=== PATIENT | female | born 1960 | race Caucasian/White ===

== ENCOUNTER 2019-02-20 11:48 | Emergency (ER) | payer OTHER ==
--- OUTSIDE RECORDS SUMMARY | 2019-02-20 11:50 | XMS REPORT ---
:1960 Author Organization [employer] Care Team Providers Name Role Phone Aly, Na Provider Role Unavailable Allergies, Adverse Reactions, Alerts Substance Reaction Event Type codeine itching Drug Allergy Problems Problem Type Condition Code Onset Dates Condition Status Assessment Hyperlipemia E78.5 Active Assessment Chronic fatigue R53.82 Active Assessment Obstructive sleep apnea of adult G47.33 Active Assessment HTN (hypertension) I10 Active Assessment Primary insomnia F51.01 Active Assessment Chronic obstructive pulmonary J44.9 Active disease, unspecified COPD type Problem Anxiety disorder, unspecified F41.9 Active Problem Claustrophobia F40.240 Active Problem Mass of right side of neck R22.1 Active Problem Snores R06.83 Active Problem Encounter for tobacco use Z71.6 Active cessation counseling Problem Contusion, knee S80.00XA Active Problem Obstructive sleep apnea of adult G47.33 Active Problem Colitis K52.9 Active Problem Medication side effect T88.7XXA Active Problem Bilateral lower extremity edema R60.0 Active Problem Primary insomnia F51.01 Active Problem Fatigue R53.83 Active Problem Hyperlipemia E78.5 Active Problem Muscle cramps R25.2 Active Problem Drowsiness R40.0 Active Problem Chronic fatigue R53.82 Active Problem Obstructive sleep apnea G47.33 Active Problem Encounter for screening for other Z11.59 Active viral diseases Problem Other specified personal risk Z91.89 Active factors, not elsewhere classified Assessment Muscle cramps R25.2 Active Problem Allergic rhinitis J30.9 Active Assessment Bilateral lower extremity edema R60.0 Active Problem Vitamin D insufficiency E55.9 Active Assessment Encounter for screening for other Z11.59 Active viral diseases Problem HTN (hypertension) I10 Active Assessment Colitis K52.9 Active Problem Sleep apnea G47.30 Active Assessment Mass of right side of neck R22.1 Active Problem Cigarette nicotine dependence F17.210 Active without complication Assessment Other specified personal risk Z91.89 Active factors, not elsewhere classified Problem Dyspnea, unspecified type R06.00 Active Problem BMI 40.0-44.9, adult Z68.41 Active Problem Chronic obstructive pulmonary J44.9 Active disease, unspecified COPD type Medications Medication Code Code Instructions Start End Status Dosage System Date Date Losartan [facility] 83634580152 50-12.5 MG Active 1 tablet Potassium-HCTZ Orally Once a day Ambien [facility] 34681885186 5 MG Orally Once Active 1 tablet a day at bedtime Singulair [facility] 54926246401 10 MG Orally Active 1 tablet Once a day in the evening Lodine [facility] 75743233483 400 MG Orally Active 1 tablet Twice a day with food ProAir [facility] 69488187405 108 (90 Base) Active 2 puffs as RespiClick MCG/ACT needed Inhalation every 6 hrs Ativan [facility] 83329691978 0.5 MG Orally January 15, Active 1 tablet every 12 hrs 2017 as needed Diclofenac [facility] 24004117813 75 MG Orally Active 1 tablet Sodium Twice a day with food or milk Omeprazole [facility] 55035404059 20 MG Orally Active 1 capsule Once a day Lipitor [facility] 37403971894 40 MG Orally Active 1 tablet Once a day Flonase [facility] 59705483013 50 MCG/ACT Active 1 spray in Nasally Once a each day nostril Claritin [facility] 00836188895 10 MG Orally Active 1 tablet Once a day Macrobid [facility] 52696953601 100 MG Orally Active 1 capsule every 12 hrs with food Ambien [facility] 70492292004 5 MG Orally Once Jul 01, Active 1 tablet a day 2018 at bedtime Magnesium ND 47270645024 400 MG Orally Oct 29, Active 1 tablet Oxide Once a day 2019 Bevespi [facility] 33887990955 9-4.8 MCG/ACT Active 2 puffs Aerosphere Inhalation Twice a day Results No Known Results Summary Purpose eClinicalWorks Submission
--- OUTSIDE RECORDS SUMMARY | 2019-02-20 11:50 | XMS REPORT ---
:1960 Author Organization [employer] Care Team Providers Name Role Phone Aly, Na Provider Role Unavailable Allergies, Adverse Reactions, Alerts Substance Reaction Event Type codeine itching Drug Allergy Problems Problem Type Condition Code Onset Dates Condition Status Assessment Mass of right side of neck R22.1 Active Assessment Medication side effect T88.7XXA Active Assessment Encounter for tobacco use Z71.6 Active cessation counseling Assessment Colitis K52.9 Active Assessment Hyperlipemia E78.5 Active Problem Contusion, knee S80.00XA Active Assessment HTN (hypertension) I10 Active Problem Vitamin D insufficiency E55.9 Active Assessment Obstructive sleep apnea of adult G47.33 Active Problem BMI 40.0-44.9, adult Z68.41 Active Problem Cigarette nicotine dependence F17.210 Active without complication Problem Chronic obstructive pulmonary J44.9 Active disease, unspecified COPD type Problem Colitis K52.9 Active Problem Medication side effect T88.7XXA Active Problem Hyperlipemia E78.5 Active Problem Obstructive sleep apnea G47.33 Active Assessment Chronic obstructive pulmonary J44.9 Active disease, unspecified COPD type Problem Mass of right side of neck R22.1 Active Problem Dyspnea, unspecified type R06.00 Active Problem Obstructive sleep apnea of adult G47.33 Active Problem Encounter for tobacco use Z71.6 Active cessation counseling Problem Sleep apnea G47.30 Active Problem Allergic rhinitis J30.9 Active Problem Fatigue R53.83 Active Problem HTN (hypertension) I10 Active Problem Claustrophobia F40.240 Active Problem Snores R06.83 Active Problem Drowsiness R40.0 Active Problem Anxiety disorder, unspecified F41.9 Active Medications Medication Code System Code Instructions Start Date End Date Status Dosage Losartan NDC 0 Active not defined Potassium-HCTZ Results No Known Results Summary Purpose eClinicalWorks Submission
--- OUTSIDE RECORDS SUMMARY | 2019-02-20 11:50 | XMS REPORT ---
:1960 Author Organization [employer] Care Team Providers Name Role Phone Aly, Na Provider Role Unavailable Allergies, Adverse Reactions, Alerts Substance Reaction Event Type codeine itching Drug Allergy Problems Problem Type Condition Code Onset Dates Condition Status Problem Anxiety disorder, unspecified F41.9 Active Problem Snores R06.83 Active Problem Claustrophobia F40.240 Active Problem Chronic obstructive pulmonary J44.9 Active disease, unspecified COPD type Assessment Snores R06.83 Active Problem Dyspnea, unspecified type R06.00 Active Assessment Cigarette nicotine dependence F17.210 Active without complication Problem Obstructive sleep apnea G47.33 Active Problem BMI 40.0-44.9, adult Z68.41 Active Problem Contusion, knee S80.00XA Active Problem Cigarette nicotine dependence F17.210 Active without complication Problem Vitamin D insufficiency E55.9 Active Assessment Dyspnea, unspecified type R06.00 Active Assessment Chronic obstructive pulmonary J44.9 Active disease, unspecified COPD type Assessment Hyperlipemia E78.5 Active Assessment HTN (hypertension) I10 Active Problem HTN (hypertension) I10 Active Problem Sleep apnea G47.30 Active Problem Hyperlipemia E78.5 Active Problem Allergic rhinitis J30.9 Active Problem Fatigue R53.83 Active Problem Drowsiness R40.0 Active Medications Medication Code Code Instructions Start End Status Dosage System Date Date ProAir RespiClick [facility] 63458700503 108 (90 Base) Active 2 puffs MCG/ACT as needed Inhalation every 6 hrs Omeprazole ND 48228575938 20 MG Orally Active 1 capsule Once a day Lodine [facility] 61785778165 400 MG Orally Active 1 tablet Twice a day with food Chantix Starting Month ND 33494785730 .5mg as January Active one for 3 Eladio directed , 27, days then 2017 2017 bid for 4 days then 1mg BID for 21 days Claritin ND 39700929910 10 MG Orally Active 1 tablet Once a day Magnesium Oxide ND 04792375827 400 MG Orally Active 1 tablet Once a day as needed Hydrochlorothiazide [facility] 62726024786 25 MG Orally Active 1 tablet Once a day in the morning Flonase [facility] 59148693414 50 MCG/ACT Active 1 spray Nasally Once a in each day nostril Lisinopril [facility] 52817504313 5 MG Orally Active 1 tablet Once a day Bevespi Aerosphere [facility] 16490195378 9-4.8 MCG/ACT Active 2 puffs Inhalation Twice a day Singulair [facility] 27531363554 10 MG Orally Active 1 tablet Once a day in the evening Ativan [facility] 39685051891 0.5 MG Orally March Active 1 tablet every 12 hrs , as needed 2017 Ambien [facility] 77371291358 5 MG Orally Active 1 tablet Once a day at bedtime Macrobid [facility] 90472702178 100 MG Orally Active 1 capsule every 12 hrs with food Diclofenac Sodium [facility] 14860883135 75 MG Orally Active 1 tablet Twice a day with food or milk Lipitor [facility] 82242250062 40 MG Orally Active 1 tablet Once a day Results No Known Results Summary Purpose eClinicalWorks Submission
--- OUTSIDE RECORDS SUMMARY | 2019-02-20 11:50 | XMS REPORT ---
:1960 Author Organization [employer]Works Care Team Providers Name Role Phone Aly, Na Provider Role Unavailable Allergies No Known Allergies Problems Problem Type Condition Code Onset Dates Condition Status Problem Anxiety disorder, unspecified F41.9 Active Problem Snores R06.83 Active Problem Claustrophobia F40.240 Active Problem Chronic obstructive pulmonary J44.9 Active disease, unspecified COPD type Problem Dyspnea, unspecified type R06.00 Active Problem Obstructive sleep apnea G47.33 Active Problem BMI 40.0-44.9, adult Z68.41 Active Problem Contusion, knee S80.00XA Active Problem Cigarette nicotine dependence F17.210 Active without complication Problem Vitamin D insufficiency E55.9 Active Problem HTN (hypertension) I10 Active Problem Sleep apnea G47.30 Active Problem Hyperlipemia E78.5 Active Problem Allergic rhinitis J30.9 Active Problem Fatigue R53.83 Active Problem Drowsiness R40.0 Active Medications No Known Medications Results No Known Results Summary Purpose eClinicalWorks Submission
--- OUTSIDE RECORDS SUMMARY | 2019-02-20 11:50 | XMS REPORT ---
:1960 Author Organization [employer]Works Care Team Providers Name Role Phone Aly, Nancy Provider Role Unavailable Allergies No Known Allergies [...] insufficiency E55.9 Active Assessment Obstructive sleep apnea G47.33 Active Problem HTN (hypertension) I10 Active Problem Sleep apnea G47.30 Active Problem Hyperlipemia E78.5 Active Problem Allergic rhinitis J30.9 Active Problem Fatigue R53.83 Active Problem Drowsiness R40.0 Active Medications No Known Medications Results No Known Results Summary Purpose eClinicalWorks Submission
--- OUTSIDE RECORDS SUMMARY | 2019-02-20 11:50 | XMS REPORT ---
:1960 Author Organization [employer]ClinicalWorks Care Team Providers Name Role Phone Aly, Nancy Provider Role Unavailable Allergies No Known Allergies Problems Problem Type Condition Code Onset Dates Condition Status Problem Hyperlipemia E78.5 Active Problem HTN (hypertension) I10 Active Problem Fatigue R53.83 Active Problem Dyspnea, unspecified type R06.00 Active Problem Cigarette nicotine dependence F17.210 Active without complication Problem Chronic obstructive pulmonary J44.9 Active disease, unspecified COPD type Problem Allergic rhinitis J30.9 Active Problem Sleep apnea G47.30 Active Problem Vitamin D insufficiency E55.9 Active Problem BMI 40.0-44.9, adult Z68.41 Active Problem Anxiety disorder, unspecified F41.9 Active Problem Claustrophobia F40.240 Active Assessment Cigarette nicotine dependence F17.210 Active without complication Problem Snores R06.83 Active Problem Drowsiness R40.0 Active Problem Contusion, knee S80.00XA Active Medications Medication Code Code Instructions Start End Status Dosage System Date Date Clotrimazole [facility] [id number] 1 % Externally February 18February Active 1 application Twice a day 2017 30, to affected 2018 area Chantix [facility] 28233766657 .5mg as January Active one for 3 Starting Month directed 2017 27, days then bid Eladio 2018 for 4 days then 1mg BID for 21 days Results No Known Results Summary Purpose eClinicalWorks Submission
--- OUTSIDE RECORDS SUMMARY | 2019-02-20 11:51 | XMS REPORT ---
:1960 Author Organization [employer]ClinicalWorks Care Team Providers Name Role Phone Aly, Na Provider Role Unavailable Allergies No Known Allergies Problems Problem Type Condition Code Onset Dates Condition Status Problem Claustrophobia F40.240 Active Problem Anxiety disorder, unspecified F41.9 Active Problem Contusion, knee S80.00XA Active Problem Snores R06.83 Active Problem Drowsiness R40.0 Active Problem Hyperlipemia E78.5 Active Problem Fatigue R53.83 Active Problem HTN (hypertension) I10 Active Problem Sleep apnea G47.30 Active Problem Allergic rhinitis J30.9 Active Problem Encounter for screening for other Z11.59 Active viral diseases Problem Primary insomnia F51.01 Active Problem BMI 40.0-44.9, adult Z68.41 Active Problem Bilateral lower extremity edema R60.0 Active Problem Chronic fatigue R53.82 Active Problem Muscle cramps R25.2 Active Problem Upper respiratory tract infection, J06.9 Active unspecified type Problem Falling R29.6 Active Problem Chronic obstructive pulmonary J44.9 Active disease, unspecified COPD type Problem Dyspnea, unspecified type R06.00 Active Problem Cough R05 Active Problem Vitamin D insufficiency E55.9 Active Problem Balance problem R26.89 Active Problem Crohn''s disease with K50.919 Active complication, unspecified gastrointestinal tract location Problem 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 Problem Seasonal allergic rhinitis, J30.2 Active unspecified trigger Assessment 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 Problem Medication side effect T88.7XXA Active Problem Mass of right side of neck R22.1 Active Problem Cigarette nicotine dependence F17.210 Active without complication Assessment Seasonal allergic rhinitis, J30.2 Active unspecified trigger Problem Colitis K52.9 Active Problem Obstructive sleep apnea G47.33 Active Problem Other specified personal risk Z91.89 Active factors, not elsewhere classified Problem Obstructive sleep apnea of adult G47.33 Active Problem Encounter for tobacco use Z71.6 Active cessation counseling Medications Medication Code Code Instructions Start End Status Dosage System Date Date Nasacort [facility] 59800256103 55 MCG/ACT December 30, Active 1 spray in Allergy 24HR Nasally Once a 2019 each day nostril Duloxetine HCl [facility] 49153722353 30 MG Orally December 30, Active 1 capsule Once a day 2019 Results No Known Results Summary Purpose eClinicalWorks Submission
--- OUTSIDE RECORDS SUMMARY | 2019-02-20 11:51 | XMS REPORT ---
:1960 [facility] Address [address] [place] [address] Dr. Mancia [address] [place] [id number] Care Team Providers Name Role Phone Unavailable Unavailable Unavailable Problems This patient has no known problems. Allergies, Adverse Reactions, Alerts This patient has no known allergies or adverse reactions. Medications This patient has no known medications.
--- OUTSIDE RECORDS SUMMARY | 2019-02-20 11:51 | XMS REPORT ---
[...] allergic rhinitis, J30.2 Active unspecified trigger Problem Medication side effect T88.7XXA Active Problem Mass of right side of neck R22.1 Active Problem Cigarette nicotine dependence F17.210 Active without complication Problem Colitis K52.9 Active Problem Obstructive sleep apnea G47.33 Active Problem Other specified personal risk Z91.89 Active factors, not elsewhere classified Problem Obstructive sleep apnea of adult G47.33 Active Problem Encounter for tobacco use Z71.6 Active cessation counseling Medications No Known Medications Results No Known Results Summary Purpose eClinicalWorks Submission
--- OUTSIDE RECORDS SUMMARY | 2019-02-20 11:51 | XMS REPORT ---
:1960 Author Organization eClinicalWorks Care Team Providers Name Role Phone Aly, Na Provider Role Unavailable Allergies, Adverse Reactions, Alerts Substance Reaction Event Type codeine itching Drug Allergy Problems Problem Type Condition Code Onset Dates Condition Status Assessment Crohn''s disease with K50.919 Active complication, unspecified gastrointestinal tract location Assessment Obstructive sleep apnea of adult G47.33 Active Assessment Hyperlipemia E78.5 Active Problem Anxiety disorder, unspecified F41.9 Active Problem Claustrophobia F40.240 Active Problem Snores R06.83 Active Problem Contusion, knee S80.00XA Active Problem Drowsiness R40.0 Active Problem Hyperlipemia E78.5 Active Problem Obstructive sleep apnea of adult G47.33 Active Problem Encounter for tobacco use Z71.6 Active cessation counseling Problem Fatigue R53.83 Active Problem Obstructive sleep apnea G47.33 Active Problem Encounter for screening for other Z11.59 Active viral diseases Problem Other specified personal risk Z91.89 Active factors, not elsewhere classified Problem Upper respiratory tract infection, J06.9 Active unspecified type Problem Crohn''s disease with K50.919 Active complication, unspecified gastrointestinal tract location Problem Allergic rhinitis J30.9 Active Problem Sleep apnea G47.30 Active Assessment Muscular aches M79.10 Active Problem Cough R05 Active Problem HTN (hypertension) I10 Active Problem Bilateral lower extremity edema R60.0 Active Problem Primary insomnia F51.01 Active Problem Chronic fatigue R53.82 Active Problem Muscle cramps R25.2 Active Assessment Chronic fatigue R53.82 Active Problem Dyspnea, unspecified type R06.00 Active Assessment HTN (hypertension) I10 Active Problem Chronic obstructive pulmonary J44.9 Active disease, unspecified COPD type Assessment Bilateral lower extremity edema R60.0 Active Problem BMI 40.0-44.9, adult Z68.41 Active Assessment Pain, joint, multiple sites M25.50 Active Problem Vitamin D insufficiency E55.9 Active Assessment Blurry vision H53.8 Active Problem Medication side effect T88.7XXA Active Assessment Family history of rheumatoid Z82.61 Active arthritis Problem Mass of right side of neck R22.1 Active Problem Cigarette nicotine dependence F17.210 Active without complication Problem Colitis K52.9 Active Medications Medication Code Code Instructions Start End Status Dosage System Date Date Leanne [facility] 77756435474 400 MG Orally Active 1 tablet Twice a day with food Losartan [facility] 03948893401 50-12.5 MG Active 1 tablet Potassium-HCTZ Orally Once a day Diclofenac [facility] 96718321179 75 MG Orally Active 1 tablet Sodium Twice a day with food or milk Macrobid [facility] 88940594330 100 MG Orally Active 1 capsule every 12 hrs with food Ambien [facility] 82473046833 5 MG Orally Jul 01, Active 1 tablet Once a day 2017 at bedtime Ambien [facility] 94555409975 5 MG Orally Active 1 tablet Once a day at bedtime ProAir [facility] 06364781751 108 (90 Base) Active 2 puffs as RespiClick MCG/ACT needed Inhalation every 6 hrs Singulair [facility] 75715985530 10 MG Orally Active 1 tablet Once a day in the evening Omeprazole [facility] 43504852700 20 MG Orally Active 1 capsule Once a day Ativan [facility] 52813183724 0.5 MG Orally March Active 1 tablet every 12 hrs 2017 as needed Magnesium [facility] 36290200735 400 MG Orally Active 1 tablet Oxide Once a day Bevespi [facility] 16427192516 9-4.8 MCG/ACT Active 2 puffs Aerosphere Inhalation Twice a day Claritin [facility] 22881663078 10 MG Orally Active 1 tablet Once a day Lipitor [facility] 38974765443 40 MG Orally Inactive 1 tablet Once a day Flonase [facility] 36184527772 50 MCG/ACT Active 1 spray in Nasally Once a each day nostril Results No Known Results Summary Purpose eClinicalWorks Submission
--- OUTSIDE RECORDS SUMMARY | 2019-02-20 11:51 | XMS REPORT ---
:1960 [facility] Team Providers Name Role Phone Colleen Daniels Provider Role Unavailable Allergies, Adverse Reactions, Alerts Substance Reaction Event Type codeine itching Drug Allergy Problems Problem Type Condition Code Onset Dates Condition Status Assessment Cough R05 Active Assessment Upper respiratory tract infection, J06.9 Active unspecified type Problem Anxiety disorder, unspecified F41.9 Active [...] Active Problem Sleep apnea G47.30 Active Problem Cough R05 Active Problem HTN (hypertension) I10 Active Problem Bilateral lower extremity edema R60.0 Active Problem Primary insomnia F51.01 Active Problem Chronic fatigue R53.82 Active Problem Muscle cramps R25.2 Active Problem Dyspnea, unspecified type R06.00 Active Problem Chronic obstructive pulmonary J44.9 Active disease, unspecified COPD type Problem BMI 40.0-44.9, adult Z68.41 Active Problem Vitamin D insufficiency E55.9 Active Problem Medication side effect T88.7XXA Active Problem Mass of right side of neck R22.1 Active Problem Cigarette nicotine dependence F17.210 Active without complication Problem Colitis K52.9 Active Medications Medication Code Code Instructions Start End Status Dosage System Date Date ProAir NDC 12450247122 108 (90 Base) Active 2 puffs as RespiClick MCG/ACT needed Inhalation every 6 hrs Macrobid [facility] 67692581698 100 MG Orally Active 1 capsule every 12 hrs with food Ambien [facility] 94798163219 5 MG Orally Active 1 tablet at Once a day bedtime Amoxicillin ND 74408999579 875 MG Orally Oct 15Oct 25, Active 1 tablet every 12 hrs 2017 2018 Singulair [facility] 47438129082 10 MG Orally Active 1 tablet in Once a day the evening Bevespi [facility] 29405115066 9-4.8 MCG/ACT Active 2 puffs Aerosphere Inhalation Twice a day Lodine [facility] 40259308335 400 MG Orally Active 1 tablet Twice a day with food Diclofenac [facility] 52864770440 75 MG Orally Active 1 tablet Sodium Twice a day with food or milk Omeprazole [facility] 24476348412 20 MG Orally Active 1 capsule Once a day Magnesium Oxide [facility] 64032317168 400 MG Orally Active 1 tablet Once a day Losartan [facility] 68189960011 50-12.5 MG Active 1 tablet Potassium-HCTZ Orally Once a day Medrol [facility] 35696490991 4 MG Orally as Oct 15, Active as directed directed 2017 Ambien [facility] 26437994352 5 MG Orally Active 1 tablet at Once a day bedtime Claritin [facility] 86397336873 10 MG Orally Active 1 tablet Once a day Flonase [facility] 38456803876 50 MCG/ACT Active 1 spray in Nasally Once a each day nostril Ativan [facility] 95856734688 0.5 MG Orally March Active 1 tablet as every 12 hrs 2017 needed Results No Known Results Summary Purpose eClinicalWorks Submission
--- OUTSIDE RECORDS SUMMARY | 2019-02-20 11:52 | XMS REPORT ---
:1960 Author Organization eClinicalWorks Care Team Providers Name Role Phone Colleen Daniels Provider Role Unavailable Allergies, Adverse Reactions, Alerts Substance Reaction Event Type codeine itching Drug Allergy Problems Problem Type Condition Code Onset Dates Condition Status Problem Snores R06.83 Active Problem Claustrophobia F40.240 Active Problem Drowsiness R40.0 Active Problem Contusion, knee S80.00XA Active Problem Hyperlipemia E78.5 Active Problem Fatigue R53.83 Active Problem HTN (hypertension) I10 Active Problem Sleep apnea G47.30 Active Problem Allergic rhinitis J30.9 Active Problem BMI 40.0-44.9, adult Z68.41 Active Problem Primary insomnia F51.01 Active Problem Bilateral lower extremity edema R60.0 Active Problem Vitamin D insufficiency E55.9 Active Problem Muscle cramps R25.2 Active Problem Crohn''s disease with K50.919 Active complication, unspecified gastrointestinal tract location Problem Chronic fatigue R53.82 Active Problem Upper respiratory tract infection, J06.9 Active unspecified type Problem Cough R05 Active Problem Cigarette nicotine dependence F17.210 Active without complication Problem Chronic obstructive pulmonary J44.9 Active disease, unspecified COPD type Problem Pharyngitis, unspecified etiology J02.9 Active Problem Dyspnea, unspecified type R06.00 Active Problem Seasonal allergic rhinitis, J30.2 Active unspecified trigger Problem Balance problem R26.89 Active Problem Falling R29.6 Active Problem 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 Problem Mass of right side of neck R22.1 Active Problem Anxiety disorder, unspecified F41.9 Active Problem Obstructive sleep apnea of adult G47.33 Active Problem Colitis K52.9 Active Assessment Pharyngitis, unspecified etiology J02.9 Active Problem Medication side effect T88.7XXA Active Problem Other specified personal risk Z91.89 Active factors, not elsewhere classified Problem Encounter for screening for other Z11.59 Active viral diseases Problem Encounter for tobacco use Z71.6 Active cessation counseling Problem Obstructive sleep apnea G47.33 Active Medications Medication Code Code Instructions Start End Status Dosage System Date Date Bevespi [facility] 15873161524 9-4.8 MCG/ACT Active 2 puffs Aerosphere Inhalation Twice a day Duloxetine HCl [facility] 94227425924 30 MG Orally December Active 1 capsule Once a day 2018 Diclofenac [facility] 36372679512 75 MG Orally Active 1 tablet Sodium Twice a day with food or milk Lodine [facility] 14515160922 400 MG Orally Active 1 tablet Twice a day with food Losartan [facility] 51592847521 50-12.5 MG Active 1 tablet Potassium-HCTZ Orally Once a day ProAir [facility] 87556065416 108 (90 Base) Active 2 puffs as RespiClick MCG/ACT needed Inhalation every 6 hrs Medrol [facility] 85835289133 4 MG Orally as Oct 15 as directed directed 2017 Ativan [facility] 06575279535 0.5 MG Orally December Active 1 tablet as every 12 hrs 2017 needed Macrobid [facility] 40119857477 100 MG Orally Active 1 capsule every 12 hrs with food Singulair [facility] 26815313015 10 MG Orally Active 1 tablet in Once a day the evening Claritin [facility] 26459512036 10 MG Orally Active 1 tablet Once a day Magnesium [facility] 73820820434 400 MG Orally Active 1 tablet Oxide Once a day Medrol [facility] 87030170502 4 MG Orally as January Active as directed directed 2018 Flonase [facility] 92812919040 50 MCG/ACT Active 1 spray in Nasally Once a each day nostril Omeprazole [facility] 33950745056 20 MG Orally Active 1 capsule Once a day Ambien [facility] 75990408308 5 MG Orally Once Active 1 tablet at a day bedtime Nasacort [facility] 17401787992 55 MCG/ACT December Active 1 spray in Allergy 24HR Nasally Once a 2018 each day nostril Ambien [facility] 25336538830 5 MG Orally Once Active 1 tablet at a day bedtime Results Name Result Date Reference Range Unit Abnormality Flag STREP A RAPID ----Result NEG [id number] Summary Purpose eClinicalWorks Submission
--- OUTSIDE RECORDS SUMMARY | 2019-02-20 11:52 | XMS REPORT ---
[...] Problem Obstructive sleep apnea G47.33 Active Medications No Known Medications Results No Known Results Summary Purpose eClinicalWorks Submission
--- OUTSIDE RECORDS SUMMARY | 2019-02-20 11:52 | XMS REPORT ---
:1960 Author Organization eClinicalWorks Care Team Providers Name Role Phone Aly, Na Provider Role Unavailable Allergies, Adverse Reactions, Alerts Substance Reaction Event Type codeine itching Drug Allergy Problems Problem Type Condition Code Onset Dates Condition Status Problem Claustrophobia F40.240 Active Problem Anxiety disorder, unspecified F41.9 Active Problem Contusion, knee S80.00XA Active Problem Snores R06.83 Active Assessment Vertigo R42 Active Problem Drowsiness R40.0 Active Assessment Falling R29.6 Active Problem Hyperlipemia E78.5 Active Assessment Muscular aches M79.10 Active Problem Fatigue R53.83 Active Problem HTN [...] type Problem Dyspnea, unspecified type R06.00 Active Assessment Seasonal allergic rhinitis, J30.2 Active unspecified trigger Problem Cough R05 Active Problem Vitamin D insufficiency E55.9 Active Assessment Blurry vision H53.8 Active Problem Balance problem R26.89 Active Assessment Pain, joint, multiple sites M25.50 Active Problem Crohn''s disease with K50.919 Active complication, unspecified gastrointestinal tract location Assessment Chronic fatigue R53.82 Active Problem 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 Assessment Bilateral lower extremity edema R60.0 Active Problem Seasonal allergic rhinitis, J30.2 Active unspecified trigger Assessment 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 Problem Medication side effect T88.7XXA Active Problem Mass of right side of neck R22.1 Active Assessment HTN (hypertension) I10 Active Problem Cigarette nicotine dependence F17.210 Active without complication Assessment Hyperlipemia E78.5 Active Problem Colitis K52.9 Active Assessment Nasal congestion R09.81 Active Problem Obstructive sleep apnea G47.33 Active Assessment Balance problem R26.89 Active Problem Other specified personal risk Z91.89 Active factors, not elsewhere classified Problem Obstructive sleep apnea of adult G47.33 Active Problem Encounter for tobacco use Z71.6 Active cessation counseling Medications Medication Code Code Instructions Start End Status Dosage System Date Date Bevespi [facility] 17423318835 9-4.8 MCG/ACT Active 2 puffs Aerosphere Inhalation Twice a day Claritin [facility] 49780542360 10 MG Orally Active 1 tablet Once a day Ativan [facility] 63514469654 0.5 MG Orally December Active 1 tablet as every 12 hrs 2017 needed Lodine [facility] 19387692072 400 MG Orally Active 1 tablet Twice a day with food Magnesium ND 12127580871 400 MG Orally Active 1 tablet Oxide Once a day Nasacort [facility] 96258248115 55 MCG/ACT December Active 1 spray in Allergy 24HR Nasally Once a 2018 each day nostril Ambien [facility] 96003295944 5 MG Orally Active 1 tablet at Once a day bedtime Diclofenac ND 58340878117 75 MG Orally Active 1 tablet Sodium Twice a day with food or milk Duloxetine HCl [facility] 52761767678 30 MG Orally December Active 1 capsule Once a day 2018 Singulair [facility] 28102722209 10 MG Orally Active 1 tablet in Once a day the evening Flonase ND 95663357872 50 MCG/ACT Active 1 spray in Nasally Once a each day nostril Losartan ND 21255139415 50-12.5 MG Active 1 tablet Potassium-HCTZ Orally Once a day Lipitor ND 64631805882 40 MG Orally Inactive 1 tablet Once a day ProAir [facility] 61665051980 108 (90 Base) Active 2 puffs as RespiClick MCG/ACT needed Inhalation every 6 hrs Omeprazole ND 63835470496 20 MG Orally Active 1 capsule Once a day Medrol ND 56123839877 4 MG Orally as Oct 15, Active as directed directed 2017 Ambien [facility] 97777163346 5 MG Orally Active 1 tablet at Once a day bedtime Macrobid [facility] 18290280751 100 MG Orally Active 1 capsule every 12 hrs with food Results No Known Results Summary Purpose eClinicalWorks Submission
--- OUTSIDE RECORDS SUMMARY | 2019-02-20 11:52 | XMS REPORT ---
:1960 Author Organization eClinicalWorks Care Team Providers Name Role Phone Aly, Na Provider Role Unavailable Allergies, Adverse Reactions, Alerts Substance Reaction Event Type codeine itching Drug Allergy Problems Problem Type Condition Code Onset Dates Condition Status Assessment Vertigo R42 Active Assessment Falling R29.6 Active Assessment Bilateral lower extremity edema R60.0 Active Assessment Pain, joint, multiple sites M25.50 Active Problem HTN (hypertension) I10 Active Assessment Blurry vision H53.8 Active Problem Anxiety disorder, unspecified F41.9 Active Assessment Primary insomnia F51.01 Active Problem Chronic obstructive pulmonary J44.9 Active disease, unspecified COPD type Problem Primary insomnia F51.01 Active Problem Obstructive sleep apnea G47.33 Active Problem Seasonal allergic rhinitis, J30.2 Active unspecified trigger Problem Balance problem R26.89 Active Assessment Muscular aches M79.10 Active Assessment Chronic fatigue R53.82 Active Problem 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 Assessment Seasonal allergic rhinitis, J30.2 Active unspecified trigger Problem Muscle cramps R25.2 Active Problem Bilateral lower extremity edema R60.0 Active Problem Crohn''s disease with complication, K50.919 Active unspecified gastrointestinal tract location Problem Chronic fatigue R53.82 Active Assessment Hyperlipemia E78.5 Active Assessment 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 Assessment Balance problem R26.89 Active Assessment HTN (hypertension) I10 Active Problem Hyperlipemia E78.5 Active Problem Fatigue R53.83 Active Problem Vitamin D insufficiency E55.9 Active Medications Medication Code Code Instructions Start End Status Dosage System Date Lipitor [facility] 46124121355 40 MG Orally Inactive 1 tablet Once a day Medrol [facility] 92104211613 4 MG Orally as Oct 15, Active as directed directed 2017 Nasacort [facility] 92716367639 55 MCG/ACT Active 1 spray in Allergy 24HR Nasally Once a each day nostril Tylenol # 3 NDC 0 300/30mg PO January Active one tab every 8 hours 2018 prn pain Lodine [facility] 64814837386 400 MG Orally Active 1 tablet Twice a day with food Magnesium ND 25190638260 400 MG Orally Active 1 tablet Oxide Once a day Ativan ND 02719770735 0.5 MG Orally December Active 1 tablet as every 12 hrs 2017 needed Bevespi [facility] 79336746386 9-4.8 MCG/ACT Active 2 puffs Aerosphere Inhalation Twice a day Diclofenac ND 11623416154 75 MG Orally Active 1 tablet Sodium Twice a day with food or milk Ambien [facility] 62532022716 5 MG Orally Active 1 tablet at Once a day bedtime Flonase ND 63227445558 50 MCG/ACT Active 1 spray in Nasally Once a each day nostril Macrobid [facility] 66421642311 100 MG Orally Active 1 capsule every 12 hrs with food Duloxetine HCl [facility] 51828444894 60 MG Orally Active 1 capsule Once a day Medrol [facility] 14920710108 4 MG Orally as January Active as directed directed 2018 ProAir [facility] 45655792407 108 (90 Base) Active 2 puffs as RespiClick MCG/ACT needed Inhalation every 6 hrs Omeprazole ND 08770269775 20 MG Orally Active 1 capsule Once a day Claritin [facility] 42417253653 10 MG Orally Active 1 tablet Once a day Losartan [facility] 21741635469 50-12.5 MG Active 1 tablet Potassium-HCTZ Orally Once a day Singulair [facility] 02321182358 10 MG Orally Active 1 tablet in Once a day the evening Results No Known Results Summary Purpose eClinicalWorks Submission
[2019-02-20 12:34] LABS: Absolute Lymphocytes (CBC) 2.3 K/uL (0.7-4.9); Absolute Monocytes 0.5 K/uL (0.1-1.3); Absolute Neutrophil 4.5 K/uL (1.8-8.0); Basophils % 1.3 % (0-1.3); Eosinophils % 1.3 % (0-4.4); Hematocrit 41.5 % (36.0-45.0); Lymphocytes % 30.3 % (15.3-44.8); MPV 8.4 fL (7.6-11.3); Monocytes % 6.5 % (3.3-12.3); RBC Red Blood Cell Count 4.41 M/uL (3.86-4.86)
[2019-02-20] MEDS ORDERED: ACETAMINOPHEN 500 MG TAB ONE (13:09)
[2019-02-20 13:16] LABS: Protime INR 0.99
[2019-02-20 13:25] LABS: BUN Blood Urea Nitrogen 17 mg/dL (7-18); Bicarbonate 28 mmol/L (21-32); CKMB Creatine Kinase MB 1.9 ng/mL (0.3-3.6); Creatine Phosphokinase 119 U/L (26-192); Glucose Level 109 mg/dL (74-106); Magnesium 2.2 mg/dL (1.8-2.4); NT PRO-BNP 80 pg/mL (<125); Potassium 3.6 mmol/L (3.5-5.1); Sodium Level 143 mmol/L (136-145); Troponin (Emerg Dept Use Only) < 0.02 ng/mL (0.0-0.045)
[2019-02-20 14:14] LABS: ALT/SGPT 34 U/L (12-78); AST/SGOT 25 U/L (15-37); Albumin 3.4 g/dL (3.4-5.0); Alkaline Phosphatase 74 U/L (45-117); Bilirubin Direct < 0.1 mg/dL (0-0.2); Bilirubin Total 0.3 mg/dL (0.2-1.0); Protein, Total 6.8 g/dL (6.4-8.2)
--- NOTE | 2019-02-20 14:23 | ER ---
Nurse's Notes [facility] Name: Rafia Carbajal Age: 58 yrs Sex: Female : 1960 Arrival Date: 02/20/2019 Time: 11:50 Bed 6 Private MD: Diagnosis: Malaise and fatigue Presentation: 02/20 11:57 Presenting complaint: Patient states: I have had weakness in my entire body and just sg get really fatigued with walking and doing normal daily tasks, has been seen by PCP and by the neurologist, reports the weakness worsening today, just doesn't feel right. Transition of care: patient was not received from another setting of care. Onset of symptoms was February 20, 2019. Risk Assessment: Do you want to hurt yourself or someone else? Patient reports no desire to harm self or others. Initial Sepsis Screen: Does the patient meet any 2 criteria? No. Patient's initial sepsis screen is negative. Does the patient have a suspected source of infection? No. Patient's initial sepsis screen is negative. Care prior to arrival: None. 11:57 Acuity: ANA 3 sg 11:57 Method Of Arrival: Wheelchair sg Historical: - Allergies: 12:05 Codeine; la1 - Home Meds: 12:05 Ambien 5 mg Oral tab 1 tab once daily [Active]; duloxetine 60 mg oral cpDR 1 cap once la1 daily [Active]; losartan-hydrochlorothiazide 50-12.5 mg oral tab 1 tab once daily [Active]; - PMHx: 12:05 Hypertension; Depression; la1 - PSHx: 12:05 Tubal ligation; la1 - Immunization history:: Adult Immunizations up to date. - Ebola Screening: : No symptoms or risks identified at this time. - Social history:: Smoking status: Patient/guardian denies using tobacco, the patient reports quitting approximately 1 years ago. Screenin:55 Abuse screen: Denies threats or abuse. Denies injuries from another. Nutritional ph screening: No deficits noted. Tuberculosis screening: No symptoms or risk factors identified. Fall Risk None identified. Assessment: 12:02 General: Appears in no apparent distress. Behavior is calm, cooperative. Pain: la1 Complains of pain in c/o FERGUSON. Neuro: Level of Consciousness is awake, alert, obeys commands, Oriented to person, place, time, situation, Reports fatigue. Cardiovascular: Capillary refill < 3 seconds Patient's skin is warm and dry. Respiratory: Airway is patent Respiratory effort is even, unlabored, Respiratory pattern is regular, symmetrical, Breath sounds are clear bilaterally. GI: Abdomen is non-distended, obese. : No signs and/or symptoms were reported regarding the genitourinary system. Derm: No signs and/or symptoms reported regarding the dermatologic system. 13:26 Reassessment: Patient appears in no apparent distress at this time. Patient and/or ph family updated on plan of care and expected duration. Pain level reassessed. Patient is alert, oriented x 3, equal unlabored respirations, skin warm/dry/pink. Pt resting quietly, awaiting lab results, SO at bedside, VSS. 14:35 Reassessment: Patient appears in no apparent distress at this time. Patient and/or ph family updated on plan of care and expected duration. Pain level reassessed. Patient is alert, oriented x 3, equal unlabored respirations, skin warm/dry/pink. Pt /c home. Vital Signs: 11:58 BP 155 / 71; Pulse 84; Resp 16; Temp 99.0; Pulse Ox 98% on R/A; Weight 120.2 kg; Height sg 5 ft. 5 in. (165.10 cm); Pain 6/10; 12:58 BP 117 / 53; Pulse 76; Resp 16; Pulse Ox 96% on R/A; ae3 13:28 BP 117 / 53; Pulse 74; Resp 18; Pulse Ox 98% on R/A; ph 14:35 BP 121 / 70; Pulse 72; Resp 16; Temp 98.8; Pulse Ox 99% on R/A; ph 14:36 BP 120 / 71; Pulse 73; Resp 16; Pulse Ox 98% on R/A; ss 11:58 Body Mass Index 44.10 (120.20 kg, 165.10 cm) sg Culbertson Coma Score: 12:32 Eye Response: spontaneous(4). Verbal Response: oriented(5). Motor Response: obeys kb commands(6). Total: 15. ED Course: 11:50 Patient arrived in ED. mr 11:53 [facility] Nag[facility]C [facility]. kb 11:53 Yimi Rojo MD is Attending Physician. kb 11:58 Triage completed. sg 11:59 Arm band placed on. sg 12:03 Call light in reach. Side rails up X 1. Pulse ox on. NIBP on. la1 12:21 Cheyenne Yang, RN is Primary Nurse. ph 12:21 Initial lab(s) drawn, by me, sent to lab. Flu and/or RSV swab sent to lab. Inserted ph saline lock: 20 gauge in right antecubital area, using aseptic technique. Blood collected. 14:36 No provider procedures requiring assistance completed. IV discontinued, intact, ss bleeding controlled, No redness/swelling at site. Pressure dressing applied. 14:36 No provider procedures requiring assistance completed. IV discontinued. ph Administered Medications: 12:58 Drug: Tylenol 1000 mg Route: PO; ae3 13:30 Follow up: Response: No adverse reaction; Pain is decreased ph Outcome: 14:23 Discharge ordered by MD. kb 14:36 Instructed on ss 14:36 Discharged to home ambulatory, with significant other. ph 14:36 Condition: good 14:36 Discharge instructions given to patient, Instructed on discharge instructions, follow up and referral plans. Demonstrated understanding of instructions, follow-up care. 14:37 Patient left the ED. ph Signatures: Missy Nagy, ROOFING SUPERINTENDENT-C ROOFING SUPERINTENDENT-Ckb Horacio Miller, RN AN Yuliya Neville Shelby, RN RN ss Attema, Lee, RN RN la1 Cheyenne Yang, RN RN Bettie Shoemaker ae3
--- NOTE | 2019-02-20 14:23 | EDPHYS ---
Physician Documentation [facility] Name: Rafia Carbajal Age: 58 yrs Sex: Female : 1960 Arrival Date: 02/20/2019 Time: 11:50 Bed 6 Private MD: ED Physician Yimi Rojo HPI: 02/20 14:18 This 58 yrs old Female presents to ER via Wheelchair with complaints of kb Headache, fatigue. 14:18 The patient presents with generalized weakness, fatigue. Onset: The symptoms/episode kb began/occurred 6 month(s) ago, and became worse yesterday. Context: occurred at home. Modifying factors: The symptoms are alleviated by nothing, the symptoms are aggravated by nothing. Associated signs and symptoms: Pertinent positives: headache, Pertinent negatives: abdominal pain, agitation, ataxia, blurred vision, chest pain, combativeness, confusion, diaphoresis, focal weakness, head injury, nausea, near-syncope, numbness, palpitations, , seizure, shortness of breath, syncope, tingling, vomiting. Severity of symptoms: At their worst the symptoms were moderate in the emergency department the symptoms are unchanged. Patient's baseline: Neuro: alert and fully oriented, Motor: no deficits, Ambulation: walks without assistance, Speech: normal. The patient has not experienced similar symptoms in the past. The patient has been recently seen by a physician:. Pt reports fatigue for 6 months. Reports she has seen her PCP and a neurologist in [place] for this. Had MRIs done on 02/15/19 and 02/16/19 to check for MS. Came in today because she got home from work yesterday and slept for 11 hours and is still tired. . Historical: - Allergies: 12:05 Codeine; la1 - Home Meds: 12:05 Ambien 5 mg Oral tab 1 tab once daily [Active]; duloxetine 60 mg oral cpDR 1 cap once la1 daily [Active]; losartan-hydrochlorothiazide 50-12.5 mg oral tab 1 tab once daily [Active]; - PMHx: 12:05 Hypertension; Depression; la1 - PSHx: 12:05 Tubal ligation; la1 - Immunization history:: Adult Immunizations up to date. - Ebola Screening: : No symptoms or risks identified at this time. - Social history:: Smoking status: Patient/guardian denies using tobacco, the patient reports quitting approximately 1 years ago. ROS: 12:32 Eyes: Negative for injury, pain, redness, and discharge, ENT: Negative for injury, kb pain, and discharge, Neck: Negative for injury, pain, and swelling, Cardiovascular: Negative for chest pain, palpitations, and edema, Respiratory: Negative for shortness of breath, cough, wheezing, and pleuritic chest pain, Abdomen/GI: Negative for abdominal pain, nausea, vomiting, diarrhea, and constipation, Back: Negative for injury and pain, : Negative for injury, bleeding, discharge, and swelling, MS/Extremity: Negative for injury and deformity, Skin: Negative for injury, rash, and discoloration. 12:32 Constitutional: Positive for body aches, fatigue, Negative for chills, fever, malaise, poor PO intake, weight loss. 12:32 Neuro: Positive for headache, weakness. Exam: 12:30 Constitutional: This is a well developed, well nourished patient who is awake, alert, kb and in no acute distress. Head/Face: Normocephalic, atraumatic. ENT: Nares patent. No nasal discharge, no septal abnormalities noted. Tympanic membranes are normal and external auditory canals are clear. Oropharynx with no redness, swelling, or masses, exudates, or evidence of obstruction, uvula midline. Mucous membranes moist. Neck: Trachea midline, no thyromegaly or masses palpated, and no cervical lymphadenopathy. Supple, full range of motion without nuchal rigidity, or vertebral point tenderness. No Meningismus. Chest/axilla: Normal chest wall appearance and motion. Nontender with no deformity. No lesions are appreciated. Cardiovascular: Regular rate and rhythm with a normal S1 and S2. No gallops, murmurs, or rubs. Normal PMI, no JVD. No pulse deficits. Respiratory: Lungs have equal breath sounds bilaterally, clear to auscultation and percussion. No rales, rhonchi or wheezes noted. No increased work of breathing, no retractions or nasal flaring. Abdomen/GI: Soft, non-tender, with normal bowel sounds. No distension or tympany. No guarding or rebound. No evidence of tenderness throughout. Skin: Warm, dry with normal turgor. Normal color with no rashes, no lesions, and no evidence of cellulitis. MS/ Extremity: Pulses equal, no cyanosis. Neurovascular intact. Full, normal range of motion. 12:30 Neuro: Orientation: is normal, Mentation: is normal, Memory: is normal, Cranial nerves: grossly normal, Cerebellar function: is grossly normal, Motor: moves all fours, Strength is 3/5 in the right arm, left arm, right leg and left leg, Sensation: is normal. 12:32 ECG was reviewed by the Attending Physician. kb Vital Signs: 11:58 BP 155 / 71; Pulse 84; Resp 16; Temp 99.0; Pulse Ox 98% on R/A; Weight 120.2 kg; Height sg 5 ft. 5 in. (165.10 cm); Pain 6/10; 12:58 BP 117 / 53; Pulse 76; Resp 16; Pulse Ox 96% on R/A; ae3 13:28 BP 117 / 53; Pulse 74; Resp 18; Pulse Ox 98% on R/A; ph 14:35 BP 121 / 70; Pulse 72; Resp 16; Temp 98.8; Pulse Ox 99% on R/A; ph 14:36 BP 120 / 71; Pulse 73; Resp 16; Pulse Ox 98% on R/A; ss 11:58 Body Mass Index 44.10 (120.20 kg, 165.10 cm) sg Teresa Coma Score: 12:32 Eye Response: spontaneous(4). Verbal Response: oriented(5). Motor Response: obeys kb commands(6). Total: 15. MDM: 11:54 Patient medically screened. kb 12:32 Data reviewed: vital signs, nurses notes. Data interpreted: Pulse oximetry: on room air kb is 98 %. Interpretation: normal. 14:18 Counseling: I had a detailed discussion with the patient and/or guardian regarding: the kb historical points, exam findings, and any diagnostic results supporting the discharge/admit diagnosis, lab results, radiology results, the need for outpatient follow up, a family practitioner, a neurologist, to return to the emergency department if symptoms worsen or persist or if there are any questions or concerns that arise at home. 02/20 12:01 Order name: Basic Metabolic Panel; Complete Time: 13:46 kb 02/20 12:01 Order name: CBC with Diff; Complete Time: 12:44 kb 02/20 12:01 Order name: Magnesium; Complete Time: 13:46 kb 02/20 12:01 Order name: NT PRO-BNP; Complete Time: 13:46 kb 02/20 12:01 Order name: PT-INR; Complete Time: 13:21 kb 02/20 12:01 Order name: Troponin (emerg Dept Use Only); Complete Time: 13:46 kb 02/20 12:01 Order name: EKG; Complete Time: 12:02 kb 02/20 12:01 Order name: Cardiac monitoring; Complete Time: 12:22 kb 02/20 12:01 Order name: Ckmb; Complete Time: 13:46 kb 02/20 12:01 Order name: CPK; Complete Time: 13:46 kb 02/20 12:01 Order name: [facility] Screen Profile; Complete Time: 13:07 kb 02/20 12:01 Order name: Flu; Complete Time: 13:07 kb 02/20 13:50 Order name: LFT's; Complete Time: 14:17 kb 02/20 12:01 Order name: EKG - Nurse/Tech; Complete Time: 12:22 kb 02/20 12:01 Order name: IV Saline Lock; Complete Time: 12:22 kb 02/20 12:01 Order name: Labs collected and sent; Complete Time: 12:24 kb 02/20 12:01 Order name: O2 Per Protocol; Complete Time: 12:24 kb 02/20 12:01 Order name: O2 Sat Monitoring; Complete Time: 12:24 kb EC:32 Rate is 73 beats/min. Rhythm is regular, Normal Sinus Rhythm. QRS [place] is Normal. ND kb interval is normal at 136 msec. QRS interval is normal at 88 msec. QT interval is normal at 412 msec. Clinical impression: Normal ECG. Interpreted by me. Reviewed by me. Administered Medications: 12:58 Drug: Tylenol 1000 mg Route: PO; ae3 13:30 Follow up: Response: No adverse reaction; Pain is decreased ph Disposition: 22:10 Co-signature as Attending Physician, Yimi Rojo MD Available for consultation at ps1 all times . Disposition: 02/20/19 14:23 Discharged to Home. Impression: Malaise and fatigue. - Condition is Stable. - Discharge Instructions: Fatigue. - Medication Reconciliation Form, Thank You Letter, Antibiotic Education, Prescription Opioid Use form. - Follow up: Emergency Department; When: As needed; Reason: Worsening of condition. Follow up: Private Physician; When: 2 - 3 days; Reason: Recheck today's complaints, Continuance of care, Re-evaluation by your physician. Signatures: Dispatcher [employer] EDMissy Man, LEONARDO LANGSTON-Twin Kelley RN RN la1 Cheyenne Yang RN RN Yimi French MD MD ps1 Elliot, Andie ae3 Corrections: (The following items were deleted from the chart) 14:37 14:23 02/20/2019 14:23 Discharged to Home. Impression: Malaise and fatigue. Condition ph is Stable. Forms are Medication Reconciliation Form, Thank You Letter, Antibiotic Education, Prescription Opioid Use. Follow up: Emergency Department; When: As needed; Reason: Worsening of condition. Follow up: Private Physician; When: 2 - 3 days; Reason: Recheck today's complaints, Continuance of care, Re-evaluation by your physician. kb
--- NOTE | 2019-02-21 06:09 | EKG ---
Test Date: 2019-02-20 Test Time: 12:16:49 Real Estate Professor: ANNI MEASUREMENT RESULTS: Intervals: Rate: 73 NE: 136 QRSD: 88 QT: 412 QTc: 453 [place]: P: 65 NE: 136 QRS: -29 T: 59 INTERPRETIVE STATEMENTS: Normal sinus rhythm Normal ECG Compared to ECG 01/02/2011 05:25:54 No significant changes Electronically Signed On 02-21-19 06:08:18 CDT by Dave Ritter
== END 2019-02-20 14:37 | disposition home or self-care (01) ==
LOC: ER 11:48
DX: R53.83 Other fatigue (principal); R53.81 Other malaise; Z88.5 Allergy status to narcotic agent; I10 Essential (primary) hypertension
CPT/HCPCS: 36415; 80048; 80076; 82550; 82553; 83735; 83880; 84484; 85025; 85610; 86308; 87804; 93005; 99284

== ENCOUNTER 2020-12-28 12:16 | Inpatient (IN) | payer OTHER ==
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
[2020-12-28 17:57] LABS: Absolute Lymphocytes (CBC) 2.2 K/uL (0.7-4.9); Basophils % 0.7 % (0-1.3); Lymphocytes % 19.1 % (15.3-44.8); MPV 7.9 fL (7.6-11.3)
[2020-12-28 18:17] LABS: ALT/SGPT 52 U/L (12-78); AST/SGOT 23 U/L (15-37); Albumin 3.5 g/dL (3.4-5.0); Alkaline Phosphatase 99 U/L (45-117); BUN Blood Urea Nitrogen 12 mg/dL (7-18); Bicarbonate 29 mmol/L (21-32); Bilirubin Direct < 0.1 mg/dL (0-0.2); Bilirubin Total 0.5 mg/dL (0.2-1.0); Glucose Level 78 mg/dL (74-106); Magnesium 2.4 mg/dL (1.8-2.4); NT PRO-BNP 43 pg/mL (<125); Potassium 3.4 mmol/L (3.5-5.1); Protein, Total 7.6 g/dL (6.4-8.2); Sodium Level 143 mmol/L (136-145); Troponin (Emerg Dept Use Only) < 0.02 ng/mL (0.0-0.045)
--- NOTE | 2020-12-28 18:39 | RAD REPORT ---
EXAM DESCRIPTION: Jose Single View12/28/2020 6:00 pm CLINICAL HISTORY: Shortness of breath COMPARISON: 2010 FINDINGS: The lungs appear clear of acute infiltrate. The heart is normal size IMPRESSION: No acute abnormalities displayed
--- NOTE | 2020-12-28 19:11 | EDPHYS ---
Physician Documentation [facility] Name: Rafia Carbajal Age: 60 yrs Sex: Female : 1960 Arrival Date: 12/28/2020 Time: 12:20 Bed 2 Private MD: ED Physician Fernie Canela HPI: 12/28 17:50 This 60 yrs old Female presents to ER via Wheelchair with complaints of jr8 Shortness Of Breath, Leg Swelling. 17:50 The patient has shortness of breath at rest. Onset: The symptoms/episode began/occurred jr8 gradually. Duration: The symptoms are continuous. The patient's shortness of breath is aggravated by light activity. Associated signs and symptoms: Pertinent positives: lower extremity swelling. Severity of symptoms: At their worst the symptoms were moderate in the emergency department the symptoms are unchanged. It is unknown whether or not the patient has had similar symptoms in the past. The patient has not recently seen a physician. Patient also stated that she was admitted for 5 days in the past for staph infection to her anterior tibia. Worried that the chronic wound is getting infected again. Stated that it has increased redness, pain, and now having discharge . Historical: - Allergies: 12:50 Codeine; ca1 - Home Meds: 12:50 duloxetine 60 mg Oral cpDR 1 cap once daily [Active]; losartan-hydrochlorothiazide ca1 50-12.5 mg Oral tab 1 tab once daily [Active]; Metformin Oral [Active]; Trulicity subcutaneous subcutaneous [Active]; Glipizide Oral [Active]; amlodipine oral [Active]; gabapentin oral oral [Active]; rosuvastatin oral oral [Active]; - PMHx: 12:50 Depression; Hypertension; High Cholesterol; Diabetes - NIDDM; ca1 - PSHx: 12:50 Tubal ligation; ca1 - Immunization history:: Flu vaccine is up to date. - Social history:: Smoking status: Patient/guardian denies using tobacco, the patient reports quitting approximately 2 years ago. ROS: 17:50 Eyes: Negative for injury, pain, redness, and discharge, ENT: Negative for injury, jr8 pain, and discharge, Neck: Negative for injury, pain, and swelling, Abdomen/GI: Negative for abdominal pain, nausea, vomiting, diarrhea, and constipation, Back: Negative for injury and pain, MS/Extremity: Negative for injury and deformity, Neuro: Negative for headache, weakness, numbness, tingling, and seizure. 17:50 Cardiovascular: Positive for edema, Negative for chest pain, orthopnea, palpitations, paroxysmal nocturnal dyspnea. 17:50 Respiratory: Positive for shortness of breath. 17:50 Skin: Positive for erythema, ulceration, of the left leg. Exam: 17:50 Eyes: Pupils equal round and reactive to light, extra-ocular motions intact. Lids and jr8 lashes normal. Conjunctiva and sclera are non-icteric and not injected. Cornea within normal limits. Periorbital areas with no swelling, redness, or edema. Neck: Trachea midline, no thyromegaly or masses palpated, and no cervical lymphadenopathy. Supple, full range of motion without nuchal rigidity, or vertebral point tenderness. No Meningismus. Respiratory: Lungs have equal breath sounds bilaterally, clear to auscultation and percussion. No rales, rhonchi or wheezes noted. No increased work of breathing, no retractions or nasal flaring. Abdomen/GI: Soft, non-tender, with normal bowel sounds. No distension or tympany. No guarding or rebound. No evidence of tenderness throughout. MS/ Extremity: Pulses equal, no cyanosis. Neurovascular intact. Full, normal range of motion. Neuro: Awake and alert, GCS 15, oriented to person, place, time, and situation. Cranial nerves II-XII grossly intact. Motor strength 5/5 in all extremities. Sensory grossly intact. Cerebellar exam normal. Normal gait. 17:50 Cardiovascular: Rate: normal, Rhythm: regular, Pulses: Pulses are 2+ in right radial artery and left radial artery. Heart sounds: normal, normal S1and S2, no S3 or S4, no murmur, no rub, no gallop, Edema: 2+ edema to level of left midcalf, left ankle, left foot, left toes, right midcalf, right ankle, right foot and right toes. 17:50 Skin: Patient has 10 cm by 10 cm area of redness to left lower anterior tibial spine region that extends almost circumferentially. Exudative material noted with pustules and tenderness to palpation . Vital Signs: 12:45 BP 114 / 57; Pulse 77; Resp 16 S; Temp 97.1(TE); Pulse Ox 99% on R/A; Weight 133.81 kg ca1 (R); Height 5 ft. 3 in. (160.02 cm) (R); Pain 9/10; 17:57 BP 116 / 62; Pulse 75; Resp 17; Pulse Ox 100% on R/A; tw2 18:30 BP 129 / 75; Pulse 72; Resp 17; Pulse Ox 99% on R/A; tw2 19:30 BP 145 / 80; Pulse 70; Resp 18; Pulse Ox 98% ; rr5 20:30 BP 151 / 78; Pulse 75; Resp 19; Temp 98; Pulse Ox 99% ; rr5 21:30 BP 132 / 84; Pulse 79; Resp 17; Pulse Ox 98% ; rr5 22:30 BP 141 / 89; Pulse 82; Resp 16; Pulse Ox 97% ; rr5 23:44 BP 108 / 41; Pulse 80; Resp 17; Pulse Ox 97% ; rr5 12:45 Body Mass Index 52.26 (133.81 kg, 160.02 cm) ca1 MDM: 17:01 Patient medically screened. [facility] 19:06 Data reviewed: vital signs, nurses notes, lab test result(s), EKG, radiologic studies, [facility] plain films. Data interpreted: Pulse oximetry: on room air is 100 %. Interpretation: normal. Counseling: I had a detailed discussion with the patient and/or guardian regarding: the historical points, exam findings, and any diagnostic results supporting the discharge/admit diagnosis, lab results, radiology results, the need for further work-up and treatment in the hospital. 12/28 17:14 Order name: Basic Metabolic Panel [facility] 12/28 17:14 Order name: CBC with Diff [facility] 12/28 17:14 Order name: LFT's [facility] 12/28 17:14 Order name: Magnesium [facility] 12/28 17:14 Order name: NT PRO-BNP [facility] 12/28 17:14 Order name: PT-INR [facility] 12/28 17:14 Order name: Troponin (emerg Dept Use Only) [facility] 12/28 18:00 Order name: Protime (+INR); Complete Time: 18:03 EDMS 12/28 18:01 Order name: CBC with Automated Diff; Complete Time: 18:03 EDMS 12/28 18:18 Order name: Basic Metabolic Panel; Complete Time: 18:44 EDMS 12/28 18:18 Order name: Liver (Hepatic) Function; Complete Time: 18:44 EDPR 12/28 18:18 Order name: Troponin (Emerg Dept Use Only); Complete Time: 18:44 EDPR 12/28 18:18 Order name: NT PRO-BNP; Complete Time: 18:44 EDPR 12/28 18:18 Order name: Magnesium; Complete Time: 18:44 [facility] 12/28 17:14 Order name: XRAY Chest (1 view) [facility] 12/28 17:14 Order name: EKG; Complete Time: 17:16 [facility] 12/28 17:14 Order name: Cardiac monitoring; Complete Time: 18:12 [facility] 12/28 17:14 Order name: EKG - Nurse/Tech; Complete Time: 18:12 [facility] 12/28 17:14 Order name: IV Saline Lock; Complete Time: 17:55 [facility] 12/28 17:14 Order name: Labs collected and sent; Complete Time: 17:55 [facility] 12/28 18:40 Order name: RAD; Complete Time: 18:44 EDPR 12/28 19:35 Order name: COVID-19 : Document "Date of Symptom Onset" if Symptomatic. 5 12/28 19:50 Order name: CORONAVIRUS [facility] 12/28 20:09 Order name: Urine Dipstick--Ancillary (enter results) [facility] 12/28 20:43 Order name: SARS-COV-2 RT PCR; Complete Time: 20:46 EDPR 12/28 21:51 Order name: Urine Dipstick-Ancillary; Complete Time: 21:54 [facility] 12/28 17:14 Order name: O2 Per Protocol; Complete Time: 17:55 [facility] 12/28 17:14 Order name: O2 Sat Monitoring; Complete Time: 17:55 jr8 Administered Medications: 18:50 CANCELLED (Physician Discretion): Clindamycin 600 mg IVPB once over 30 mins; (mix in 50 jr8 mL) 19:25 Drug: Lasix 60 mg Route: IVP; Site: left antecubital; rr5 20:25 Follow up: Response: No adverse reaction rr5 19:30 Drug: Cefepime 1 grams Route: IVPB; Rate: 200 ml/hr; Infused Over: 30 mins; Site: left rr5 antecubital; 19:55 Dru grams of (vancoMYCIN 1 grams, NS 0.9% 250 ml) Route: IVPB; Infused Over: 2 hrs; rr5 Site: left antecubital; 21:00 Follow up: Response: No adverse reaction; IV Status: Completed infusion; IV Intake: rr5 250ml Disposition: 12/29 07:50 Co-signature as Attending Physician, Fernie Canela MD I agree with the assessment and rodrigue plan of care. Disposition: 12/28/20 19:10 Hospitalization ordered by Enrique Lott for Inpatient Admission. Preliminary diagnosis is Cellulitis of left lower limb. - Bed requested for Telemetry/MedSurg (Inpatient). - Status is Inpatient Admission. rr5 - Condition is Stable. - Problem is new. - Symptoms have improved. Signatures: Dispatcher [employer] Renetta Miner RN RN dw Anderson, Corey, MD MD cha Roszak, Josh, PA PA jr8 Dvo Pike RN RN rr5 Kia Saavedra RN RN ca1 Corrections: (The following items were deleted from the chart) 12/28 18:50 18:45 Clindamycin 600 mg IVPB once over 30 mins; (mix in 50 mL) ordered. jr8 jr8 19:58 19:10 Hospitalization Ordered by Allen Aragon MD for Inpatient Admission. Preliminary jr8 diagnosis is Cellulitis of left lower limb. Bed requested for Telemetry/MedSurg (Inpatient). Status is Inpatient Admission. Condition is Stable. Problem is new. Symptoms have improved. jr8 21:51 19:58 12/28/2020 19:10 Hospitalization Ordered by Enrique Lott for Inpatient dw Admission. Preliminary diagnosis is Cellulitis of left lower limb. Bed requested for Telemetry/MedSurg (Inpatient). Status is Inpatient Admission. Condition is Stable. Problem is new. Symptoms have improved. jr8 23:43 21:51 12/28/2020 19:10 Hospitalization Ordered by Enrique Lott for Inpatient rr5 Admission. Preliminary diagnosis is Cellulitis of left lower limb. Bed requested for Telemetry/MedSurg (Inpatient). Status is Inpatient Admission. Condition is Stable. Problem is new. Symptoms have improved. dw
--- NOTE | 2020-12-28 19:11 | ER ---
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 Hx of swelling and a ca1 staph infection. Reports pain on both legs. Reports cough and SOB. Coronavirus screen: Client denies travel out of the [place] in the last 14 days. cough unrelated to allergies, shortness of breath, Client presents with at least one sign or symptom that may indicate coronavirus-19. Standard/surgical mask placed on the client. Provider contacted for isolation considerations. The client reports previous COVID testing was negative. Date of collection: November 2020. Ebola Screen: Patient negative for fever greater than or equal to 101.5 degrees Fahrenheit, and additional compatible Ebola Virus Disease symptoms Patient denies exposure to infectious person. Patient denies travel to an Ebola-affected area in the 21 days before illness onset. No symptoms or risks identified at this time. Initial Sepsis Screen: Does the patient meet any 2 criteria? No. Patient's initial sepsis screen is negative. Does the patient have a suspected source of infection? No. Patient's initial sepsis screen is negative. Risk Assessment: Do you want to hurt yourself or someone else? Patient reports no desire to harm self or others. Onset of symptoms was December 28, 2020. 12:45 Method Of Arrival: Wheelchair ca1 12:45 Acuity: ANA 3 ca1 Historical: - Allergies: 12:50 Codeine; ca1 - Home Meds: 12:50 duloxetine 60 mg Oral cpDR 1 cap once daily [Active]; losartan-hydrochlorothiazide ca1 50-12.5 mg Oral tab 1 tab once daily [Active]; Metformin Oral [Active]; Trulicity subcutaneous subcutaneous [Active]; Glipizide Oral [Active]; amlodipine oral [Active]; gabapentin oral oral [Active]; rosuvastatin oral oral [Active]; - PMHx: 12:50 Depression; Hypertension; High Cholesterol; Diabetes - NIDDM; ca1 - PSHx: 12:50 Tubal ligation; ca1 - Immunization history:: Flu vaccine is up to date. - Social history:: Smoking status: Patient/guardian denies using tobacco, the patient reports quitting approximately 2 years ago. Screenin:31 Abuse screen: Denies threats or abuse. Nutritional screening: No deficits noted. tw2 Tuberculosis screening: No symptoms or risk factors identified. Fall Risk None identified. Assessment: 16:37 General: Appears in no apparent distress. obese, well groomed, Behavior is calm, tw2 cooperative, appropriate for age. Pain: Complains of pain in right leg and left leg. Neuro: Level of Consciousness is awake, alert, obeys commands, Oriented to person, place, time, situation. Cardiovascular: Capillary refill < 3 seconds Patient's skin is warm and dry. Cardiovascular: Edema is 2+ to left midcalf, left ankle, left foot, right midcalf, right ankle and right foot. Respiratory: Airway is patent Respiratory effort is even, unlabored, Respiratory pattern is regular, symmetrical. GI: Abdomen is round non-distended, obese. : No signs and/or symptoms were reported regarding the genitourinary system. Derm: redness and weeping noted to b/l LE Reports increased redness, swelling and weeping. Musculoskeletal: Range of motion: intact in all extremities. 17:57 Reassessment: Patient appears in no apparent distress at this time. No changes from tw2 previously documented assessment. Patient and/or family updated on plan of care and expected duration. Pain level reassessed. Patient is alert, oriented x 3, equal unlabored respirations, skin warm/dry/pink. 19:00 General: Appears in no apparent distress. comfortable, Behavior is calm, cooperative, rr5 appropriate for age. Neuro: Level of Consciousness is awake, alert, obeys commands, Oriented to person, place, time. Cardiovascular: Capillary refill < 3 seconds Patient's skin is warm and dry. Respiratory: Airway is patent Respiratory effort is even, unlabored, Respiratory pattern is regular, symmetrical. GI: Abdomen is round non-distended, obese. : No signs and/or symptoms were reported regarding the genitourinary system. EENT: No signs and/or symptoms were reported regarding the EENT system. Derm: Skin temperature is warm redness and warm to touch bilateral legs, swelling noted. Musculoskeletal: Capillary refill < 3 seconds, Swelling present in right leg and left leg. 19:46 Reassessment: Patient and/or family updated on plan of care and expected duration. Pain ea level reassessed. Patient is alert, oriented x 3, equal unlabored respirations, skin warm/dry/pink. Awaiting on covid results. 20:00 Reassessment: post lasix urine output noted. rr5 21:30 Reassessment: Patient appears in no apparent distress at this time. Patient and/or rr5 family updated on plan of care and expected duration. Pain level reassessed. Patient is alert, oriented x 3, equal unlabored respirations, skin warm/dry/pink. Reassessment:. 22:31 Reassessment: Patient and/or family updated on plan of care and expected duration. Pain ea level reassessed. Patient is alert, oriented x 3, equal unlabored respirations, skin warm/dry/pink. 23:43 Reassessment: Patient and/or family updated on plan of care and expected duration. Pain ea level reassessed. Patient is alert, oriented x 3, equal unlabored respirations, skin warm/dry/pink. Report given to receiving nurse on fourth floor, pt admitted to fourth floor, left ED via wheelchair per certified surgical tech/first assistant, tolerating well. Vital Signs: 12:45 BP 114 / 57; Pulse 77; Resp 16 S; Temp 97.1(TE); Pulse Ox 99% on R/A; Weight 133.81 kg ca1 (R); Height 5 ft. 3 in. (160.02 cm) (R); Pain 9/10; 17:57 BP 116 / 62; Pulse 75; Resp 17; Pulse Ox 100% on R/A; tw2 18:30 BP 129 / 75; Pulse 72; Resp 17; Pulse Ox 99% on R/A; tw2 19:30 BP 145 / 80; Pulse 70; Resp 18; Pulse Ox 98% ; rr5 20:30 BP 151 / 78; Pulse 75; Resp 19; Temp 98; Pulse Ox 99% ; rr5 21:30 BP 132 / 84; Pulse 79; Resp 17; Pulse Ox 98% ; rr5 22:30 BP 141 / 89; Pulse 82; Resp 16; Pulse Ox 97% ; rr5 23:44 BP 108 / 41; Pulse 80; Resp 17; Pulse Ox 97% ; rr5 12:45 Body Mass Index 52.26 (133.81 kg, 160.02 cm) ca1 ED Course: 12:20 Patient arrived in ED. ds1 12:48 Triage completed. ca1 12:50 Arm band placed on right wrist. ca1 16:37 Bed in low position. Call light in reach. Side rails up X2. housekeeping supervisor hotel on. Pulse tw2 ox on. NIBP on. Warm blanket given. 16:39 Fernie Wu PA is PHCP. cp 16:39 Fernie Canela MD is Attending Physician. cp 16:59 Matti Flores PA is PHCP. jr8 16:59 Fernie Canela MD is Attending Physician. jr8 17:15 Aviva Campos, AN is Primary Nurse. tw2 17:45 Inserted saline lock: 20 gauge in left antecubital area, using aseptic technique. Blood tw2 collected. 19:07 Allen Aragon MD is Hospitalizing Provider. jr8 19:58 Enrique Lott is Hospitalizing Provider. jr8 20:11 Primary Nurse role handed off by Aviva Campos RN mw2 20:12 Dov Pike RN is Primary Nurse. rr5 20:14 No provider procedures requiring assistance completed. Patient admitted, IV remains in rr5 place. intact, No redness/swelling at site. Administered Medications: 18:50 CANCELLED (Physician Discretion): Clindamycin 600 mg IVPB once over 30 mins; (mix in 50 jr8 mL) 19:25 Drug: Lasix 60 mg Route: IVP; Site: left antecubital; rr5 20:25 Follow up: Response: No adverse reaction rr5 19:30 Drug: Cefepime 1 grams Route: IVPB; Rate: 200 ml/hr; Infused Over: 30 mins; Site: left rr5 antecubital; 19:55 Dru grams of (vancoMYCIN 1 grams, NS 0.9% 250 ml) Route: IVPB; Infused Over: 2 hrs; rr5 Site: left antecubital; 21:00 Follow up: Response: No adverse reaction; IV Status: Completed infusion; IV Intake: rr5 250ml Intake: 21:00 IV: 250ml; Total: 250ml. rr5 Outcome: 19:10 Decision to Hospitalize by Provider. jr8 21:41 Instructed on the need for admit, Demonstrated understanding of instructions. ea 21:42 Condition: stable ea 23:42 Admitted to Med/surg accompanied by tech, via wheelchair, room 420, with chart, Report ea called to Receiving nurse 23:43 Patient left the ED. rr5 Signatures: Pamela Chicas1 Matti Flores PA PA jr8 Fernie Wu PA PA cp Wise, Tara, RN RN tw2 Barbara Infante RN RN ea Nadya Ramirez 2 Dov Pike RN RN rr5 Kia Saavedra RN RN ca1 Corrections: (The following items were deleted from the chart) 19:33 16:37 Derm: redness and weeping noted to b/l LE tw2 tw2
[2020-12-28] MEDS ORDERED: VANCOMYCIN 1 GM/VIAL ONE (19:32)
[2020-12-28] MEDS ORDERED: FUROSEMIDE 100 MG/10 ML VIAL IV ONE (19:32)
[2020-12-28] MEDS ORDERED: NA CHLORIDE 0.9% 250 ML ONE (19:33)
[2020-12-28] MEDS ORDERED: CEFEPIME/SWI 1gm 10 ML ONE (19:33)
[2020-12-28 21:51] LABS: Urine Blood NEGATIVE (NEG); Urine Glucose NEGATIVE (NEG); Urine Protein NEGATIVE (NEG); Urine Specific Gravity 1.025 (1.005-1.030)
[2020-12-29 00:28] VITALS: BMI 53.8
[2020-12-29] MEDS ORDERED: VANCOMYCIN 1.5 GM in NA CHLORIDE 0.9% 500 ML IVPB SCH ×2 (00:29→07:00)
[2020-12-29] MEDS ORDERED: Pharmacy Consult 1 EA XX PRN (00:29)
[2020-12-29] MEDS: INSULIN -REGULAR HUMAN 50 UNIT/0.5 ML ML SQ SCH ×5 (00:29→21:00)
[2020-12-29] MEDS ORDERED: ONDANSETRON 4 MG/2 ML VIAL IV PRN (00:29)
[2020-12-29] MEDS ORDERED: ACETAMINOPHEN 500 MG TAB PO PRN (00:29)
[2020-12-29] MEDS ORDERED: VANCOMYCIN 1 GM in NA CHLORIDE 0.9% 250 ML IV ONE (02:00)
[2020-12-29 02:29] LABS: Urine Appearance CLOUDY; Urine Bilirubin NEGATIVE (NEG); Urine Blood NEGATIVE (NEG); Urine Color YELLOW; Urine Glucose NEGATIVE (NEG); Urine Protein NEGATIVE (NEG); Urine Urobilinogen 0.2 mg/dL (0.2-1.0); Urine pH 5.5 (5.0-7.0)
[2020-12-29 02:35] LABS: Urine Microscopic Reflex ORDER UMIC
[2020-12-29 03:51] LABS: Urine Bacteria 20-50 /HPF (<20); Urine RBC <5 /HPF (NONE SEEN)
[2020-12-29 03:52] LABS: Urine Mucus 1+ /HPF (NONE SEEN)
--- NOTE | 2020-12-29 04:05 | P.HP ---
Certification for Inpatient Patient admitted to: Inpatient With expected LOS: >2 Midnights Patient will require the following post-hospital care: None Practitioner: I am a practitioner with admitting privileges, knowledge of patient current condition, hospital course, and medical plan of care. Services: Services provided to patient in accordance with Admission requirements found in Title 42 Section 412.3 of the Code of Federal Regulations <Emmanuel Ramirez - Last Filed: 12/29/20 04:17> Patient History Date of Service: 12/28/20 Primary Care Provider: Dr. Millan Reason for admission: cellulitis History of Present Illness: Ms. Carbajal is a 60 yo F with HTN, DM, and HLD here today for two days of increa sed erythema and edema of left calf with skin breakdown, blisters, and weeping. She describes 9/10 pain feels like needles are shooting through her calf. She says this happened last year when she was diagnosed with cellulitis and received 5 day of IV antibiotics. She denies fever, nausea, vomiting, chest pain, and abdominal pain. She quit smoking two years ago. WBC 11.6. K+ 3.4. - Past Medical/Surgical History Diabetic: Yes -: HTN -: DM -: HLD -: tubal ligation - Family History Mother -: Cancer, Other (see notes) Notes: lung and liver - Social History Smoking Status: Former smoker Alcohol use: No CD- Drugs: No Caffeine use: Yes Place of Residence: Home <Emmanuel Ramirez - Last Filed: 12/29/20 04:17> Date of Service: 12/29/20 <desiree deal - Last Filed: 12/29/20 17:38> Allergies codeine Allergy (Verified 12/29/20 00:29) Itching/Hives/Rash Review of Systems General: Unremarkable Eyes: Unremarkable ENT: Unremarkable Respiratory: Unremarkable Cardiovascular: Unremarkable Gastrointestinal: Unremarkable Genitourinary: Unremarkable Musculoskeletal: Leg Pain, As per HPI Integumentary: As per HPI Neurological: Unremarkable Lymphatics: Unremarkable <Emmanuel Ramirez - Last Filed: 12/29/20 04:17> Physical Examination - Vital Signs Temperature: 98 F Blood Pressure: 108/41 Pulse: 80 Respirations: 17 - Physical Exam General: Alert, In no apparent distress, Oriented x3, Cooperative HEENT: Atraumatic, Normocephalic, PERRLA, Mucous membr. moist/pink, EOMI, Sclerae nonicteric Neck: Supple, 2+ carotid pulse no bruit, JVD not distended, No Thyromegaly, No LAD Respiratory: Clear to auscultation bilaterally, Normal air movement Cardiovascular: No edema, Regular rate/rhythm, Normal S1 S2, No gallops, No rubs, No murmurs Capillary refill: <2 Seconds Gastrointestinal: Normal bowel sounds, Soft and benign, Non-distended, No ascites, No tenderness, No masses, No rebound, No guarding Musculoskeletal: No clubbing, No contractures, Swelling, Erythema, Tenderness, Warmth Integumentary: Rash(es), Skin breakdown, Skin lesion, Tenderness/swelling, Erythema, Warmth, Other (cellulitis of left calf ) Neurological: Normal speech, Normal strength at 5/5 x4 extr, Normal tone, Sensation intact, Cranial nerves 3-12 intact, Normal affect Lymphatics: No axilla or inguinal lymphadenopathy - Studies Laboratory Data (last 24 hrs) 12/28/20 17:40: PT 11.5, INR 1.00 12/28/20 17:40: WBC 11.60 H, Hgb 14.1, Hct 42.0, Plt Count 297 12/28/20 17:40: Sodium 143, Potassium 3.4 L, BUN 12, Creatinine 0.55, Glucose 78, Magnesium 2.4, Total Bilirubin 0.5, AST 23, ALT 52, Alkaline Phosphatase 99 <Emmanuel Ramirez - Last Filed: 12/29/20 04:17> - Studies Laboratory Data (last 24 hrs) 12/28/20 17:40: PT 11.5, INR 1.00 12/28/20 17:40: WBC 11.60 H, Hgb 14.1, Hct 42.0, Plt Count 297 12/28/20 17:40: Sodium 143, Potassium 3.4 L, BUN 12, Creatinine 0.55, Glucose 78, Magnesium 2.4, Total Bilirubin 0.5, AST 23, ALT 52, Alkaline Phosphatase 99 <desiree deal - Last Filed: 12/29/20 17:38> Assessment and Plan - Plan Assessment #cellulitis of the left lower extremity #HTN #DM #HLD Plan #cellulitis of the left lower extremity -received vancomycin and cefepime in the ER -will continue IV vancomycin 2gm q24hr #HTN -currently stable, will restart home medications #DM -mild sliding scale and ACHS checks #HLD -currently stable, will restart home medications Discharge Plan: Home Plan to discharge in: Unknown - Advance Directives Does patient have a Living Will: No Does patient have a Durable POA for Healthcare: No Critical Care: No Time Spent Managing Pts Care (In Minutes): 70 <Emmanuel Ramirez - Last Filed: 12/29/20 04:17> Physician Review: Patient Assessed, Agree with Above Assessment and Plan Physician Review Additional Text: Left lower extremity cellulitis. Plan: Antibiotics Keep leg elevated. <desiree deal - Last Filed: 12/29/20 17:38>
[2020-12-29 05:02] LABS: Absolute Lymphocytes (CBC) 2.2 K/uL (0.7-4.9); Basophils % 0.7 % (0-1.3); Hematocrit 39.1 % (36.0-45.0); Lymphocytes % 19.8 % (15.3-44.8); MPV 8.4 fL (7.6-11.3); RBC Red Blood Cell Count 4.15 M/uL (3.86-4.86)
[2020-12-29 05:18] LABS: ALT/SGPT 46 U/L (12-78); AST/SGOT 20 U/L (15-37); Albumin 3.2 g/dL (3.4-5.0); Alkaline Phosphatase 81 U/L (45-117); BUN Blood Urea Nitrogen 14 mg/dL (7-18); Bicarbonate 28 mmol/L (21-32); Bilirubin Total 0.5 mg/dL (0.2-1.0); Glucose Level 109 mg/dL (74-106); Potassium 3.2 mmol/L (3.5-5.1); Sodium Level 143 mmol/L (136-145)
--- NOTE | 2020-12-29 06:50 | EKG ---
Test Date: 2020-12-28 Test Time: 18:01:19 [employer] Bullet Maker: SWG MEASUREMENT RESULTS: Intervals: Rate: 99 NE: 68 QRSD: 98 QT: 418 QTc: 536 [place]: P: 5 NE: 68 QRS: -13 T: 53 INTERPRETIVE STATEMENTS: Undetermined rhythm Prolonged QT Abnormal ECG Compared to ECG 02/20/2019 12:16:49 Prolonged QT interval now present Sinus rhythm no longer present Electronically Signed On 12-29-20 06:49:08 VICE INVESTIGATOR by Ye Culver
[2020-12-29] MEDS: ENOXAPARIN 40 MG/0.4 ML SQ SCH (08:59)
[2020-12-29] MEDS: VANCOMYCIN 2 GM in NA CHLORIDE 0.9% 500 ML IVPB SCH ×2 (09:00→22:04)
[2020-12-29] MEDS: CEFEPIME/SWI 1gm 10 ML IV SCH ×2 (10:00→22:05)
--- NOTE | 2020-12-29 17:43 | P.PN ---
Subjective Date of Service: 12/29/20 Primary Care Provider: Dr. Millan Chief Complaint: cellulitis Patient has no new complain. Left lower extremity swelling and erythema have improved. Physical Examination - Vital Signs Temperature: 98.2 F Blood Pressure: 124/74 Pulse: 80 Respirations: 18 Pulse Ox (%): 95 - Physical Exam General: Alert, In no apparent distress, Oriented x3 Neck: Supple Respiratory: Clear to auscultation bilaterally, Normal air movement Cardiovascular: Regular rate/rhythm, Normal S1 S2, Edema (Bilateral lower extremity, worse on the left) Gastrointestinal: Normal bowel sounds, Soft and benign, Non-distended, No tenderness Musculoskeletal: Swelling (Left lower extremity) Integumentary: Erythema (Left leg) Neurological: Normal strength at 5/5 x4 extr, Cranial nerves 3-12 intact - Studies Laboratory Data (last 24 hrs) 12/28/20 17:40: PT 11.5, INR 1.00 12/28/20 17:40: WBC 11.60 H, Hgb 14.1, Hct 42.0, Plt Count 297 12/28/20 17:40: Sodium 143, Potassium 3.4 L, BUN 12, Creatinine 0.55, Glucose 78, Magnesium 2.4, Total Bilirubin 0.5, AST 23, ALT 52, Alkaline Phosphatase 99 Assessment And Plan - Current Problems (Diagnosis) (1) Cellulitis of lower extremity Current Visit: Yes Status: Acute (2) Diabetes mellitus type 2 in obese Current Visit: Yes Status: Acute (3) Hypertension Current Visit: Yes Status: Acute (4) Lymphedema of lower extremity Current Visit: Yes Status: Acute - Plan Continue IV vancomycin. Added IV cefepime. Keep lower extremities elevated. Insulin sliding scale for glucose management. Monitor for improvement. Hold antihypertensives as patient is currently normotensive. Oral Lasix for lymphedema.
[2020-12-29] MEDS: TRAMADOL HCL 50 MG TAB PO SCH (18:18)
[2020-12-29] MEDS: FUROSEMIDE 40 MG TABLET PO SCH (18:18)
[2020-12-29] MEDS: GABAPENTIN 400 MG CAP PO SCH (18:18)
[2020-12-29] MEDS ORDERED: VANCOMYCIN 2 GM in NA CHLORIDE 0.9% 500 ML IVPB SCH (20:00)
[2020-12-29] MEDS ORDERED: CEFEPIME 1 GM/VIAL IV SCH (21:00)
[2020-12-29] MEDS ORDERED: AMITRIPTYLINE 25 MG TAB PO SCH (21:00)
[2020-12-29] MEDS: DULOXETINE 30 MG CAP PO SCH (22:03)
[2020-12-29] MEDS: TIZANIDINE 4 MG TABLET PO SCH (22:04)
[2020-12-30] MEDS: TRAMADOL HCL 50 MG TAB PO SCH ×2 (01:03→08:02)
[2020-12-30] MEDS: GABAPENTIN 400 MG CAP PO SCH ×2 (01:03→08:03)
[2020-12-30 07:28] LABS: Absolute Lymphocytes (CBC) 1.9 K/uL (0.7-4.9); Basophils % 1.1 % (0-1.3); Hematocrit 37.3 % (36.0-45.0); Lymphocytes % 23.6 % (15.3-44.8); MPV 7.8 fL (7.6-11.3); RBC Red Blood Cell Count 3.98 M/uL (3.86-4.86)
[2020-12-30] MEDS: INSULIN -REGULAR HUMAN 50 UNIT/0.5 ML ML SQ SCH (07:30)
[2020-12-30 07:45] LABS: BUN Blood Urea Nitrogen 10 mg/dL (7-18); Bicarbonate 29 mmol/L (21-32); Glucose Level 144 mg/dL (74-106); Potassium 3.3 mmol/L (3.5-5.1); Sodium Level 144 mmol/L (136-145)
[2020-12-30] MEDS: ENOXAPARIN 40 MG/0.4 ML SQ SCH (08:02)
[2020-12-30] MEDS: VANCOMYCIN 2 GM in NA CHLORIDE 0.9% 500 ML IVPB SCH (08:02)
[2020-12-30] MEDS: CEFEPIME/SWI 1gm 10 ML IV SCH (08:02)
[2020-12-30] MEDS: DULOXETINE 30 MG CAP PO SCH (08:03)
[2020-12-30] MEDS: FUROSEMIDE 40 MG TABLET PO SCH (08:03)
[2020-12-30] MEDS: TIZANIDINE 4 MG TABLET PO SCH (08:03)
[2020-12-30 08:05] VITALS: BP 140/70; TEMP 97.9
[2020-12-30 08:17] VITALS: O2SAT 96
--- NOTE | 2020-12-30 08:33 | EKG ---
Test Date: 2020-12-28 Test Time: 18:01:43 Provider Network Manager: SWG MEASUREMENT RESULTS: Intervals: Rate: 92 IN: 148 QRSD: 86 QT: 402 QTc: 497 [place]: P: 54 IN: 148 QRS: -19 T: 32 INTERPRETIVE STATEMENTS: Undetermined rhythm Prolonged QT Abnormal ECG Compared to ECG 12/28/2020 18:01:19 No significant changes Electronically Signed On 12-30-20 08:29:35 TERRAZZO FINISHER by Ye Culver
[2020-12-30] MEDS ORDERED: ROSUVASTATIN 10 MG TAB PO SCH (09:00)
[2020-12-30] MEDS ORDERED: POTASSIUM CL SA 10 MEQ TAB PO ONE (09:00)
[2020-12-30] MEDS ORDERED: HOME MED 1 EA UNK (Duloxetine Hcl [Cymbalta] 60 MG Capsule.Dr) PO SCH (09:00)
--- NOTE | 2020-12-30 10:56 | P.DS ---
Admission Date: 12/28/20 Discharge Date: 12/30/20 Primary Care Provider: Dr. Millan Disposition: ROUTINE DISCHARGE Discharge Condition: FAIR Reason for Admission: cellulitis - Problems (1) Cellulitis of lower extremity Current Visit: Yes Status: Acute (2) Diabetes mellitus type 2 in obese Current Visit: Yes Status: Acute (3) Hypertension Current Visit: Yes Status: Acute (4) Lymphedema of lower extremity Current Visit: Yes Status: Acute Brief History of Present Illness: 60-year-old woman with a history of hypertension, hyperlipidemia and diabetes, history of lower extremity edema presented to the emergency department with a complaint of increased swelling, redness, pain, and development of weeping soresn on the left lower extremity. Patient was diagnosis cellulitis of the lower extremity and admitted to the medical floor for IV antibiotics. Hospital Course: Patient treated with IV vancomycin and cefepime, leg elevation and IV Lasix. The left lower extremity erythema and swelling improved with these measures. Her pain also improved. Patient ambulating with no issues. She is deemed clinically stable for discharge. She is discharged with oral doxycycline and Augmentin to continue treatment for cellulitis. She is also prescribed oral Lasix to be used p.r.n. for increased leg edema. Vital Signs/Physical Exam: Temp Pulse Resp BP Pulse Ox 97.9 F 92 H 18 140/70 93 12/30/20 08:00 12/30/20 08:03 12/30/20 09:02 12/30/20 08:03 12/30/20 09:02 General: Alert, In no apparent distress, Oriented x3 Neck: JVD not distended Respiratory: Clear to auscultation bilaterally, Normal air movement Cardiovascular: Regular rate/rhythm, Normal S1 S2, Edema (Bilateral lower extremity, worse on the left) Gastrointestinal: Soft and benign, Non-distended, No tenderness Integumentary: Erythema (Bilateral lower extremities, worse on the left.) Neurological: Normal strength at 5/5 x4 extr Laboratory Data at Discharge: WBC 8.00 K/uL (4.3-10.9) D 12/30/20 06:52 Hgb 12.6 g/dL (12.0-15.0) 12/30/20 06:52 Hct 37.3 % (36.0-45.0) 12/30/20 06:52 Plt Count 251 K/uL (152-406) 12/30/20 06:52 PT 11.5 SECONDS (9.5-12.5) 12/28/20 17:40 INR 1.00 12/28/20 17:40 Sodium 144 mmol/L (136-145) 12/30/20 06:52 Potassium 3.3 mmol/L (3.5-5.1) L 12/30/20 06:52 BUN 10 mg/dL (7-18) 12/30/20 06:52 Creatinine 0.49 mg/dL (0.55-1.3) L 12/30/20 06:52 Glucose 144 mg/dL (74-106) H 12/30/20 06:52 Magnesium 2.4 mg/dL (1.8-2.4) 12/28/20 17:40 Total Bilirubin 0.5 mg/dL (0.2-1.0) 12/29/20 03:31 AST 20 U/L (15-37) 12/29/20 03:31 ALT 46 U/L (12-78) 12/29/20 03:31 Alkaline Phosphatase 81 U/L (45-117) 12/29/20 03:31 Home Medications: Amitriptyline [Elavil*] 25 mg PO BEDTIME 12/29/20 Amlodipine [Norvasc*] 5 mg PO DAILY 12/29/20 Duloxetine HCl [Cymbalta] 30 mg PO DAILY 12/29/20 Duloxetine HCl [Cymbalta] 60 mg PO DAILY 12/29/20 Gabapentin [Neurontin*] 400 mg PO Q8H 12/29/20 Glipizide [Glipizide ER] 5 mg PO DAILY 12/29/20 Losartan/Hydrochlorothiazide [Hyzaar 100-25 Tablet] 25 mg PO DAILY 12/29/20 Rosuvastatin Calcium 10 mg PO DAILY 12/29/20 Tizanidine [Zanaflex*] 4 mg PO BID 12/29/20 Tramadol HCl [Ultram] 50 mg PO Q8H 12/29/20 Amox/Clavulanate [Augmentin 875-125 Tab] 875 mg PO BID #10 tab 12/30/20 Doxycycline Hyclate [Vibramycin] 100 mg PO BID #7 capsule 12/30/20 Furosemide [Lasix] 40 mg PO DAILY PRN #30 tab 12/30/20 New Medications: Amox/Clavulanate [Augmentin 875-125 Tab] 875 mg PO BID #10 tab Furosemide [Lasix] 40 mg PO DAILY PRN #30 tab PRN Reason: leg EDEMA Doxycycline Hyclate [Vibramycin] 100 mg PO BID #7 capsule Diet: ADA Activity: Ad demario Followup: Nancy Aly DO [Primary Care Provider] - 1-2 Weeks Time spent managing pt's care (in minutes): 28
[2020-12-31] MEDS ORDERED: VANCOMYCIN 2 GM in NA CHLORIDE 0.9% 500 ML IVPB SCH (03:00)
== END 2020-12-30 11:42 | disposition home or self-care (01) | DRG 603 ==
LOC: ER 12:16 → ERHOLD 20:19 → 4TH 21:59
PROVIDERS: ADMIT Internal Medicine; ATTEND Internal Medicine
DX: L03.116 Cellulitis of left lower limb (principal); Z68.43 Body mass index [BMI] 50.0-59.9, adult; E66.9 Obesity, unspecified; E11.9 Type 2 diabetes mellitus without complications; I10 Essential (primary) hypertension; I89.0 Lymphedema, not elsewhere classified; E78.5 Hyperlipidemia, unspecified; Z88.5 Allergy status to narcotic agent; Z79.84 Long term (current) use of oral hypoglycemic drugs; Z79.899 Other long term (current) drug therapy; Z98.51 Tubal ligation status; Z87.891 Personal history of nicotine dependence; Z20.822 Contact with and (suspected) exposure to COVID-19
CPT/HCPCS: 36415; 71045; 80048; 80053; 80076; 80202; 81003; 81015; 82947; 83036; 83735; 83880; 84484; 85025; 85610; 87086; 87088; 93005; 96365; 96375; 99285; J0692; J1650; J3370; J7040; J7050; U0003

== ENCOUNTER 2022-04-27 06:56 | Emergency (ER) | payer OTHER ==
[2022-04-27 07:42] LABS: Hematocrit 37.1 % (36.0-45.0); Lymphocytes % 35.5 % (15.3-44.8); MPV 7.5 fL (7.6-11.3); RBC Red Blood Cell Count 4.03 M/uL (3.86-4.86)
[2022-04-27] MEDS ORDERED: LIDOCAINE VISCOUS 2% SOLN 15 ML UDC ONE (07:42)
[2022-04-27] MEDS ORDERED: MAGNES/ALUMIN/SIMET 30ML UCUP ONE (07:42)
[2022-04-27 07:46] LABS: Protime INR 0.99
[2022-04-27 08:00] LABS: Bilirubin Direct 0.1 mg/dL (0-0.2); Bilirubin Total 0.4 mg/dL (0.2-1.0); Potassium 3.8 mmol/L (3.5-5.1); Protein, Total 6.4 g/dL (6.4-8.2); Troponin High Sensitivity 14.1 pg/mL (<58.9)
--- NOTE | 2022-04-27 08:09 | RAD REPORT ---
EXAM DESCRIPTION: Jose Single View04/27/2022 7:55 am CLINICAL HISTORY: Chest pain COMPARISON: 2020 FINDINGS: The lungs appear clear of acute infiltrate. The heart is normal size IMPRESSION: No acute abnormalities displayed
--- NOTE | 2022-04-27 10:20 | EDPHYS ---
Physician Documentation [facility] Name: Rafia Carbajal Age: 61 yrs Sex: Female : 1960 Arrival Date: 04/27/2022 Time: 06:57 Bed 6 Private MD: ED Physician Burak Gill HPI: 04/27 07:40 This 61 yrs old Female presents to ER via EMS with complaints of Chest Pain. rn 07:40 The patient or guardian reports chest pain that is located primarily in the substernal rn area. Onset: 2 day(s) ago. The pain radiates to neck. Associated signs and symptoms: Pertinent negatives: abdominal pain, cough, diaphoresis, syncope, vomiting. The chest pain is described as burning. Duration: The patient or guardian reports multiple episodes, that are intermittent, the episodes last approximately 5 minute(s). Modifying factors: The symptoms are alleviated by nothing. the symptoms are aggravated by nothing. Severity of pain: At its worst the pain was moderate in the emergency department the pain has resolved. The patient has not experienced similar symptoms in the past. The patient has not recently seen a physician. Pt reports neg stress test with her motor mechanic about 1 year ago.. Historical: - Home Meds: 07:01 amlodipine oral [Active]; gabapentin Oral [Active]; duloxetine 60 mg Oral cpDR 1 cap kd3 once daily [Active]; losartan-hydrochlorothiazide 50-12.5 mg Oral tab 1 tab once daily [Active]; Glipizide Oral [Active]; Metformin Oral [Active]; rosuvastatin Oral [Active]; Trulicity subcutaneous [Active]; - PMHx: 07:01 Depression; Diabetes - NIDDM; High Cholesterol; Hypertension; kd3 - Immunization history:: Adult Immunizations up to date. - Social history:: Smoking status: unknown. - Family history:: not pertinent. - Hospitalizations: : No recent hospitalization is reported. ROS: 07:40 Constitutional: Negative for fever, chills, and weight loss, ENT: Negative for injury, rn pain, and discharge, Neck: Negative for injury and swelling, Cardiovascular: Negative for palpitations, and edema, Respiratory: Negative for cough, wheezing, and pleuritic chest pain, Abdomen/GI: Negative for abdominal pain, nausea, vomiting, diarrhea, and constipation, Back: Negative for injury and pain, MS/Extremity: Negative for injury and deformity, Skin: Negative for injury, rash, and discoloration, Neuro: Negative for headache, weakness, numbness, tingling, and seizure. Exam: 07:40 Constitutional: This is a well developed, well nourished patient who is awake, alert, rn and in no acute distress. Head/Face: Normocephalic, atraumatic. Neck: Trachea midline, no masses palpated Cardiovascular: Regular rate and rhythm. No pulse deficits. Respiratory: No increased work of breathing, no retractions or nasal flaring. Abdomen/GI: Soft, non-tender Skin: Warm, dry MS/ Extremity: Pulses equal, no cyanosis. Neuro: Awake and alert, GCS 15 Vital Signs: 07:04 Resp 19; Temp 97.5; kd3 07:05 BP 149 / 73; Pulse 69; Resp 18; Pulse Ox 97% on R/A; Weight 129.27 kg; Height 5 ft. 3 kd3 in. (160.02 cm); Pain 0/10; 09:00 BP 148 / 74; Pulse 70; Resp 15; Pulse Ox 99% ; bp 11:06 BP 142 / 73; Pulse 64; Resp 16; Pulse Ox 95% ; bp 07:05 Body Mass Index 50.48 (129.27 kg, 160.02 cm) kd3 MDM: 06:59 Patient medically screened. rn 10:18 Differential diagnosis: acute myocardial infarction, acute pericarditis, anxiety, rn coronary artery disease chest wall pain, costochondritis, esophagitis, gastritis, gastroesophageal reflux disease (GERD). Data reviewed: vital signs, nurses notes, lab test result(s), EKG, radiologic studies, plain films, and as a result, I will discharge patient. Counseling: I had a detailed discussion with the patient and/or guardian regarding: the historical points, exam findings, and any diagnostic results supporting the discharge/admit diagnosis, lab results, radiology results, the need for outpatient follow up, to return to the emergency department if symptoms worsen or persist or if there are any questions or concerns that arise at home. Response to treatment: the patient's symptoms have markedly improved after treatment, and as a result, I will discharge patient. Special discussion: Based on the patient's history, exam, and Dx evaluation, there is no indication for emergent intervention or inpatient Tx. It is understood by the patient/guardian that if the Sx's persist or worsen they need to return immediately for re-evaluation. I discussed with the patient/guardian in detail that at this point there is no indication for admission to the hospital. It is understood, however, that if the symptoms persist or worsen the patient needs to return immediately for re-evaluation. Based on the history and exam findings, there is no indication for further emergent testing or inpatient evaluation. I discussed with the patient/guardian the need to see the motor mechanic for further evaluation of the symptoms. I discussed with the patient/guardian the need to see the primary care provider for further evaluation of the symptoms. ED course: Trop neg, NSR without ischemia on ECG, normal stress test within a year, will dc home if repeat trop and ecg still normal. Recommend cardiology and GI f/u.. 04/27 07:08 Order name: Basic Metabolic Panel; Complete Time: 08: rn 04/27 07:08 Order name: CBC with Diff; Complete Time: rn 04/27 07:08 Order name: LFT's; Complete Time: : rn 04/27 07:08 Order name: NT PRO-BNP; Complete Time: : rn 04/27 07:08 Order name: PT-INR; Complete Time: : rn 04/27 07:08 Order name: Troponin HS; Complete Time: rn 04/27 07:08 Order name: XRAY Chest (1 view); Complete Time: : rn 04/27 07:08 Order name: EKG; Complete Time: : rn 04/27 07:08 Order name: Cardiac monitoring; Complete Time: 07: rn 04/27 07:08 Order name: SARS-COV-2 RT PCR (Document "Date of Onset" if Symptomatic); Complete Time: rn 10:43 04/27 07:09 Order name: Lipase; Complete Time: :04/27 09:32 Order name: Troponin High Sensitivity; Complete Time: 10:51 rn 04/27 09:32 Order name: EKG; Complete Time: 09:32 rn 04/27 07:08 Order name: EKG - Nurse/Tech; Complete Time: 07: rn 04/27 07:08 Order name: IV Saline Lock; Complete Time: 07: rn 04/27 07:08 Order name: Labs collected and sent; Complete Time: 07:31 rn 04/27 07:08 Order name: O2 Per Protocol; Complete Time: 07: rn 04/27 07:08 Order name: O2 Sat Monitoring; Complete Time: 07: rn 04/27 09:32 Order name: EKG - Nurse/Tech; Complete Time: 09:56 rn Administered Medications: 07:39 Drug: GI Cocktail without - (Maalox Suspension 30 ml, Lidocaine Liquid 2 % 15 bp ml) Route: PO; 09:34 Follow up: Response: No adverse reaction bp Disposition Summary: 04/27/22 10:19 Discharge Ordered Location: Home rn Problem: new rn Symptoms: have improved rn Condition: Stable rn Diagnosis - Chest pain, unspecified rn Followup: rn - With: Private Physician - When: As needed - Reason: Recheck today's complaints, Re-evaluation by your physician Discharge Instructions: - Discharge Summary Sheet rn - Nonspecific Chest Pain, Adult rn Forms: - Medication Reconciliation Form rn - Thank You Letter rn - Antibiotic dyed yarn operator - Prescription Opioid Use rn Signatures: Dispatcher [employer] EDBurak Abrams MD MD rn Peltier, Brian, RN RN Kandi Roberts, RN RN kd3
--- NOTE | 2022-04-27 10:20 | ER ---
Nurse's Notes [facility] Name: Rafia Carbajal Age: 61 yrs Sex: Female : 1960 Arrival Date: 04/27/2022 Time: 06:57 Bed 6 Private MD: Diagnosis: Chest pain, unspecified Presentation: 04/27 06:58 Chief complaint: EMS states: toned out for a burning sensation that woke her up from kd3 sleep and radiates to the right side of her neck. the burning sensation has been going on for a few days now but this morning it was just worse. she also is complaining of dizziness. gave 324 aspirin and .4 nitro en route. finger stick 175. Coronavirus screen: Vaccine status: Patient reports receiving the 2nd dose of the covid vaccine. Ebola Screen: No symptoms or risks identified at this time. Initial Sepsis Screen: Does the patient meet any 2 criteria? No. Patient's initial sepsis screen is negative. Does the patient have a suspected source of infection? No. Patient's initial sepsis screen is negative. Risk Assessment: Do you want to hurt yourself or someone else? Patient reports no desire to harm self or others. Onset of symptoms was April 25, 2022. 06:58 Method Of Arrival: EMS: [facility] kd3 06:58 Acuity: ANA 3 kd3 Triage Assessment: 07:01 General: Appears uncomfortable, Behavior is calm, cooperative. Pain: Complains of pain kd3 in chest. Neuro: Level of Consciousness is awake, alert, obeys commands, Oriented to person, place, time, situation. Cardiovascular: Reports chest pain, shortness of breath, Patient's skin is warm and dry. Respiratory: Airway is patent Trachea midline Respiratory effort is even, unlabored, Respiratory pattern is regular, symmetrical. Historical: - Home Meds: 07:01 amlodipine oral [Active]; gabapentin Oral [Active]; duloxetine 60 mg Oral cpDR 1 cap kd3 once daily [Active]; losartan-hydrochlorothiazide 50-12.5 mg Oral tab 1 tab once daily [Active]; Glipizide Oral [Active]; Metformin Oral [Active]; rosuvastatin Oral [Active]; Trulicity subcutaneous [Active]; - PMHx: 07:01 Depression; Diabetes - NIDDM; High Cholesterol; Hypertension; kd3 - Immunization history:: Adult Immunizations up to date. - Social history:: Smoking status: unknown. - Family history:: not pertinent. - Hospitalizations: : No recent hospitalization is reported. Screenin:03 Abuse screen: Denies threats or abuse. Denies injuries from another. Nutritional kd3 screening: No deficits noted. Tuberculosis screening: No symptoms or risk factors identified. Fall Risk None identified. Assessment: 07:05 Reassessment: see triage. Pain: Pain radiates to right sternocleidomastoid Pain began kd3 2-3 days ago. 07:05 Reassessment: RECD REPORT KANDI NOLAN. 61YO WF P/W BURNING EPIGASTRIC CHEST PAIN. bp 07:09 Cardiovascular: Rhythm is sinus rhythm. kd3 09:00 Reassessment: No changes from previously documented assessment. Patient and/or family bp updated on plan of care and expected duration. Pain level reassessed. 11:06 Reassessment: PT D/C HOME AMBULATORY, DX WITH NONSPECIFIC CHEST PAIN. bp Vital Signs: 07:04 Resp 19; Temp 97.5; kd3 07:05 BP 149 / 73; Pulse 69; Resp 18; Pulse Ox 97% on R/A; Weight 129.27 kg; Height 5 ft. 3 kd3 in. (160.02 cm); Pain 0/10; 09:00 BP 148 / 74; Pulse 70; Resp 15; Pulse Ox 99% ; bp 11:06 BP 142 / 73; Pulse 64; Resp 16; Pulse Ox 95% ; bp 07:05 Body Mass Index 50.48 (129.27 kg, 160.02 cm) kd3 ED Course: 06:57 Patient arrived in ED. kd3 06:59 Burak Gill MD is Attending Physician. rn 07:01 Triage completed. kd3 07:01 Arm band placed on left wrist. kd3 07:03 Patient has correct armband on for positive identification. kd3 07:03 Patient maintains SpO2 saturation greater than 95% on room air. kd3 07:04 Maintain EMS IV. Gauge \\T\\ site: 20 G R A/C. kd3 07:05 Client placed on continuous cardiac and pulse oximetry monitoring. NIBP monitoring bp applied. 07:11 Heriberto Davalos RN is Primary Nurse. bp 07:31 SARS-COV-2 RT PCR (Document "Date of Onset" if Symptomatic) Sent. bp 07:57 XRAY Chest (1 view) In Process Unspecified. EDMS 11:07 No provider procedures requiring assistance completed. IV discontinued, intact, bp bleeding controlled, No redness/swelling at site. Pressure dressing applied. Administered Medications: 07:39 Drug: GI Cocktail without - (Maalox Suspension 30 ml, Lidocaine Liquid 2 % 15 bp ml) Route: PO; 09:34 Follow up: Response: No adverse reaction bp Medication: 07:05 VIS not applicable for this client. kd3 Outcome: 10:19 Discharge ordered by . rn 11:07 Discharged to home ambulatory. bp 11:07 Condition: stable 11:07 Discharge instructions given to patient, Instructed on discharge instructions, follow up and referral plans. Demonstrated understanding of instructions, follow-up care. 11:08 Patient left the ED. bp Signatures: Dispatcher [employer] EDMS Burak Gill MD MD rn Peltier, Brian, RN RN bp Kandi Almazan, RN RN kd3
[2022-04-27 11:13] VITALS: TEMP 97.5
[2022-04-27 11:21] VITALS: BP 142/73; O2SAT 95
--- NOTE | 2022-04-29 13:51 | EKG ---
Test Date: 2022-04-27 Test Time: 09:55:21 Ethylbenzene Converter Operator: EM MEASUREMENT RESULTS: Intervals: Rate: 66 CT: 142 QRSD: 92 QT: 414 QTc: 434 [place]: P: 61 CT: 142 QRS: -13 T: 70 INTERPRETIVE STATEMENTS: Normal sinus rhythm Normal ECG Compared to ECG 04/27/2022 07:03:06 No significant changes Electronically Signed On 04-29-22 13:47:33 CDT by Osvaldo Gonzalez
--- NOTE | 2022-04-29 13:51 | EKG ---
Test Date: 2022-04-27 Test Time: 07:03:06 Senior Quantity Surveyor: HELEN MEASUREMENT RESULTS: Intervals: Rate: 70 DC: 140 QRSD: 94 QT: 412 QTc: 444 [place]: P: 66 DC: 140 QRS: 20 T: 57 INTERPRETIVE STATEMENTS: Normal sinus rhythm Normal ECG Compared to ECG 12/28/2020 18:01:43 Prolonged QT interval no longer present Electronically Signed On 04-29-22 13:47:40 CDT by Osvaldo Gonzalez
== END 2022-04-27 11:08 | disposition home or self-care (01) ==
LOC: ER 06:56
DX: R07.9 Chest pain, unspecified (principal); E11.9 Type 2 diabetes mellitus without complications; Z79.4 Long term (current) use of insulin; I10 Essential (primary) hypertension; F32.A Depression, unspecified; Z20.822 Contact with and (suspected) exposure to COVID-19
CPT/HCPCS: 93005 ×2; 85025; 80048; 36415; 85610; 80076; 84484 ×2; 83690; 83880; 71045; U0003; 99285

== ENCOUNTER 2023-11-04 16:41 | Inpatient (IN) | payer OTHER ==
[2023-11-04] MEDS ORDERED: NA CHLORIDE 0.9% 100 ML ONE (17:50)
[2023-11-04] MEDS ORDERED: PIPERACIL/TAZO 3.375 GM VIAL IV ONE (17:50)
[2023-11-04 17:55] LABS: Absolute Lymphocytes (CBC) 2.9 K/uL (0.7-4.9); Hematocrit 41.6 % (36.0-45.0); Lymphocytes % 25.9 % (15.3-44.8); MCV 93.2 fL (80-100); MPV 7.2 fL (7.6-11.3); Platelets 360 thou/uL (152-406); RBC Red Blood Cell Count 4.47 M/uL (3.86-4.86)
[2023-11-04 18:06] LABS: Protime INR 1.08
[2023-11-04 18:11] LABS: Albumin 3.3 g/dL (3.4-5.0); Bilirubin Total 0.3 mg/dL (0.2-1.0); Potassium 3.7 mEq/L (3.5-5.1); Protein, Total 7.8 g/dL (6.4-8.2)
[2023-11-04] MEDS ORDERED: VANCOMYCIN 1 GM/VIAL ONE (18:20)
[2023-11-04] MEDS ORDERED: NA CHLORIDE 0.9% 250 ML ONE (18:20)
--- NOTE | 2023-11-04 19:06 | ER ---
Nurse's Notes [facility] Name: Rafia Carbajal Age: 63 yrs Sex: Female : 1960 Arrival Date: 11/04/2023 Time: 16:41 Bed 8 Private MD: Diagnosis: Leg Laceration/ Open wound of lower leg-nonhealing, failed outpatient Presentation: 11/04 16:50 Chief complaint: Patient states: she was sent by Dr. Palm, because he plans on ap3 doing a procedure on her legs tomorrow. Patient states that she has had cellulitis that isn't healing. Coronavirus screen: At this time, the client does not indicate any symptoms associated with coronavirus-19. Ebola Screen: No symptoms or risks identified at this time. Initial Sepsis Screen: Does the patient meet any 2 criteria? HR > 90 bpm. Does the patient have a suspected source of infection? Yes: Skin breakdown/wound. Risk Assessment: Do you want to hurt yourself or someone else? Patient reports no desire to harm self or others. Onset of symptoms was May 2023. 16:50 Method Of Arrival: Ambulatory ap3 16:50 Acuity: ANA 3 ap3 Triage Assessment: 16:52 General: Appears in no apparent distress. Behavior is calm, cooperative, appropriate ap3 for age. Pain: Complains of pain in right leg and left leg Pain currently is 9 out of 10 on a pain scale. Neuro: Level of Consciousness is awake, alert, obeys commands, Oriented to person, place, time, situation, Appropriate for age. Cardiovascular: Patient's skin is warm and dry. Respiratory: Airway is patent Respiratory effort is even, unlabored, Respiratory pattern is regular, symmetrical. Derm: Reports bilateral cellulitis in both legs. Historical: - Allergies: 16:52 No Known Allergies; ap3 - PMHx: 16:52 Depression; Diabetes - NIDDM; High Cholesterol; Hypertension; ap3 - Immunization history:: Client reports receiving the 2nd dose of the Covid vaccine. - Social history:: Smoking status: Patient denies any tobacco usage or history of. Screenin:53 Abuse screen: Denies threats or abuse. Nutritional screening: No deficits noted. ap3 Tuberculosis screening: No symptoms or risk factors identified. 18:23 [facility] ED Fall Risk Assessment (Adult) History of falling in the last 3 months, me1 including since admission No falls in past 3 months (0 pts) Confusion or Disorientation No (0 pts) Intoxicated or Sedated No (0 pts) Impaired Gait No (0 pts) Mobility Assist Device Used No (0 pt) Altered Elimination No (0 pt) Score/Fall Risk Level 0 - 2 = Low Risk Maintained a safe environment, Provided non-skid footwear, Hourly rounding (assess needs \T\ fall precautionary measures) done. Assessment: 18:22 General: Appears uncomfortable, ill, well groomed, well developed, well nourished, me1 Behavior is calm, cooperative, appropriate for age, Reports. 18:23 General: Reports she was sent by Dr. Palm, because he plans on doing a procedure on me1 her legs tomorrow. Patient states that she has had cellulitis that isn't healing. Pain: Denies pain. Neuro: Level of Consciousness is awake, alert, obeys commands, Oriented to person, place, time, situation, Appropriate for age. Cardiovascular: Capillary refill < 3 seconds Patient's skin is warm and dry. Respiratory: Airway is patent Respiratory effort is even, unlabored, Respiratory pattern is regular, symmetrical. Derm: Reports non-healing wounds to BLE. Dressings in place at this time. Patient sent by Dr Palm as he wants to do a procedure to her legs tomorrow. Vital Signs: 16:50 BP 120 / 80; Pulse 103; Resp 17; Temp 97.6; Pulse Ox 96% ; Weight 83.01 kg; Height 5 ap3 ft. 3 in. ; Pain 9/10; 17:30 BP 115 / 87; Pulse 105; Resp 20; Pulse Ox 95% on R/A; me1 19:00 BP 119 / 71; Pulse 106; Resp 20; Pulse Ox 95% on R/A; km8 20:00 BP 145 / 75; Pulse 89; Resp 18; Pulse Ox 97% ; jj7 22:06 BP 146 / 60; Pulse 91; Resp 18; Pulse Ox 99% ; jj7 16:50 Body Mass Index 32.42 (83.01 kg, 160.02 cm) ap3 16:50 Pain Scale: Adult ap3 ED Course: 16:43 Patient arrived in ED. rg4 16:52 Triage completed. ap3 16:53 Arm band placed on left wrist. ap3 16:54 [facility] Nag[facility]C [facility] kb 16:55 Clinton Gaines MD is Attending Physician. kb 17:29 Haydee Lovett RN is Primary Nurse. me1 17:48 Inserted saline lock: 22 gauge in right antecubital area, using aseptic technique. me1 17:48 Blood Culture Adult (2) Sent. me1 17:48 CBC with Diff Sent. me1 17:48 CMP Sent. me1 17:48 Lactate w/ 2H reflex if indic. Sent. me1 17:48 Protime (+inr) Sent. me1 17:48 Ptt, Activated Sent. me1 18:16 Blood Culture Adult (2) Sent. me1 18:16 Lactate w/ 2H reflex if indic. Sent. me1 18:23 Patient has correct armband on for positive identification. Bed in low position. Call me1 light in reach. Side rails up X2. Provided Education on: POC. Verbalized understanding. . 18:23 No provider procedures requiring assistance completed. me1 19:04 Catarino Hernandez MD is Hospitalizing Provider. kb 22:19 Patient admitted, IV remains in place. jj7 Administered Medications: 17:51 Drug: Piperacillin-Tazobactam IVPB 3.375 grams IVPB once over 60 mins; (mix in NS 100 me1 mL) Route: IVPB; Infused Over: 60 mins; Site: right antecubital; 19:18 Follow up: IV Status: Completed infusion me1 22:11 Follow up: IV Status: Completed infusion jj7 19:24 Drug: vancoMYCIN IVPB 1 grams IVPB once over 2 hrs Route: IVPB; Infused Over: 2 hrs; co1 Site: right antecubital; 19:32 Drug: NS 0.9% IV 1000 ml IV at 1000 ml once Route: IV; Rate: 1000 ml; Site: right me1 antecubital; Medication: 18:23 VIS not applicable for this client. me1 Outcome: 19:05 Decision to Hospitalize by Provider. kb 22:18 Admitted to Med/surg accompanied by tech, via stretcher, Report called to BREN NOLAN jj7 22:18 Condition: good 22:20 Patient left the ED. jj7 Signatures: Missy Nagy FNP-C [employer]LY[employer]-Yolanda Enciso rg4 Em Adams RN RN ap3 Jose C Ramirez RN RN jj7 Haydee Lovett, RN RN me1 Chata Cohen RN RN km8 Corrections: (The following items were deleted from the chart) 16:52 16:52 Allergies: Codeine; ap3 ap3 18:23 16:50 Chief complaint: Patient states: she was sent by Dr. Palm, because he plans me1 on doing a procedure on her legs tomorrow. Patient states that she has had cellulitis that isn't healing ap3
--- NOTE | 2023-11-04 19:06 | EDPHYS ---
Physician Documentation [facility] Name: Rafia Carbajal Age: 63 yrs Sex: Female : 1960 Arrival Date: 11/04/2023 Time: 16:41 Bed 8 Private MD: ED Physician Clinton Gaines HPI: 11/04 19:59 This 63 yrs old Female presents to ER via Ambulatory with complaints of Leg Swelling. kb 19:59 Patient is a 63-year-old female with a history of diabetes who presents for lower kb extremity edema, redness and open wounds that it been ongoing for approximately 1 year. States she sees Dr. Palm for wound care and he sent her in for admission today so we could do a debridement tomorrow in the OR.. Historical: - Allergies: 16:52 No Known Allergies; ap3 - PMHx: 16:52 Depression; Diabetes - NIDDM; High Cholesterol; Hypertension; ap3 - Immunization history:: Client reports receiving the 2nd dose of the Covid vaccine. - Social history:: Smoking status: Patient denies any tobacco usage or history of. ROS: 19:41 Constitutional: Negative for fever, chills, and weight loss, kb 19:41 MS/extremity: Positive for of the right leg and left leg, Nonhealing wounds, 19:41 All other systems are negative, Exam: 18:58 Constitutional: This is a well developed, well nourished patient who is awake, alert, kb and in no acute distress. Head/Face: Normocephalic, atraumatic. ENT: Moist Mucous membranes Cardiovascular: Regular rate Respiratory: Respirations even and unlabored. No increased work of breathing. Talking in full sentences MS/ Extremity: Pulses equal, no cyanosis. Neurovascular intact. Full, normal range of motion. Neuro: Awake and alert, GCS 15, oriented to person, place, time, and situation. Moves all extremities. Normal gait. 18:58 ECG was reviewed by the Attending Physician. 19:58 Skin: cellulitis with open wounds to bilateral lower extremities. kb Vital Signs: 16:50 BP 120 / 80; Pulse 103; Resp 17; Temp 97.6; Pulse Ox 96% ; Weight 83.01 kg; Height 5 ap3 ft. 3 in. ; Pain 9/10; 17:30 BP 115 / 87; Pulse 105; Resp 20; Pulse Ox 95% on R/A; me1 19:00 BP 119 / 71; Pulse 106; Resp 20; Pulse Ox 95% on R/A; km8 20:00 BP 145 / 75; Pulse 89; Resp 18; Pulse Ox 97% ; jj7 22:06 BP 146 / 60; Pulse 91; Resp 18; Pulse Ox 99% ; jj7 16:50 Body Mass Index 32.42 (83.01 kg, 160.02 cm) ap3 16:50 Pain Scale: Adult ap3 MDM: 16:55 Patient medically screened. kb 18:49 Consideration of Admission/Observation Patient was admitted/placed on observation. jazz Escalation of care including admission/observation considered. 18:49 Management of patient was discussed with the following: Hospitalist: Dr jean-paul schulz accepts pt for admissin. Primary Care Provider: Dr Gill discussed case with Dr Palm prior to pt's arrival. Dr Palm wants pt admitted with antibiotics and will take pt to OR tomorrow. Counseling: I had a detailed discussion with the patient and/or guardian regarding the historical points, exam findings, and any diagnostic results supporting the discharge/admit diagnosis, lab results, the need for further work-up and treatment in the hospital. 19:41 Data reviewed: vital signs, nurses notes. kb 11/04 17:02 Order name: Blood Culture Adult (2) kb 11/04 17:02 Order name: CBC with Diff; Complete Time: 18:05 kb 11/04 17:02 Order name: CMP; Complete Time: 18:13 kb 11/04 17:02 Order name: Lactate w/ 2H reflex if indic.; Complete Time: 18:26 kb 11/04 17:02 Order name: Protime (+inr); Complete Time: 18:10 kb 11/04 17:02 Order name: Ptt, Activated; Complete Time: 18:10 kb 11/04 20:44 Order name: Basic Metabolic Panel EDMS 11/04 20:44 Order name: Basic Metabolic Panel EDMS 11/04 20:44 Order name: CBC with Automated Diff EDMS 11/04 20:44 Order name: CBC with Automated Diff EDMS 11/04 21:25 Order name: Lactate Sepsis 2 HR Follow-up; Complete Time: 21:30 EDMS 11/04 17:02 Order name: EKG; Complete Time: 17:03 kb 11/04 17:02 Order name: Accucheck; Complete Time: 18:16 kb 11/04 17:02 Order name: Cardiac monitoring; Complete Time: 18:16 kb 11/04 17:02 Order name: EKG - Nurse/Tech; Complete Time: 17:48 kb 11/04 17:02 Order name: IV Saline Lock - Large Bore; Complete Time: 17:48 kb 11/04 17:02 Order name: Labs collected and sent; Complete Time: 17:48 kb 11/04 17:02 Order name: O2 Per Protocol; Complete Time: 17:48 kb 11/04 17:02 Order name: O2 Sat Monitoring; Complete Time: 17:48 kb 11/04 17:02 Order name: Vital Signs; Complete Time: 17:48 kb EC:58 Rate is 97 beats/min. Rhythm is regular. QRS [place] is Normal. SD interval is normal at kb 142 msec. QRS interval is normal at 106 msec. QT interval is normal at 485 msec. Administered Medications: 17:51 Drug: Piperacillin-Tazobactam IVPB 3.375 grams IVPB once over 60 mins; (mix in NS 100 me1 mL) Route: IVPB; Infused Over: 60 mins; Site: right antecubital; 19:18 Follow up: IV Status: Completed infusion me1 22:11 Follow up: IV Status: Completed infusion jj7 19:24 Drug: vancoMYCIN IVPB 1 grams IVPB once over 2 hrs Route: IVPB; Infused Over: 2 hrs; me1 Site: right antecubital; 19:32 Drug: NS 0.9% IV 1000 ml IV at 1000 ml once Route: IV; Rate: 1000 ml; Site: right me1 antecubital; Disposition: 11/05 08:59 Co-signature as Attending Physician, Clinton Gaines MD I reviewed the patient's care rt provided by the Advanced Practice Provider and agree with the diagnosis and treatment plan. Disposition Summary: 11/04/23 19:05 Hospitalization Ordered Notes: Hospitalization Status: Inpatient Admission kb Provider: Catarino Hernandez Location: Telemetry/MedSurg (Inpatient) kb Condition: Stable kb Problem: new kb Symptoms: are unchanged kb Bed/Room Type: Standard Room Assignment: 219(11/04/23 20:51) jr12 Diagnosis - Leg Laceration/ Open wound of lower leg - nonhealing, failed outpatient kb Forms: - Medication Reconciliation Form kb - SBAR form kb - Leadership Thank You Letter kb Signatures: Dispatcher [employer] EDMissy Man, Em Courtney RN RN ap3 Clinton Gaines MD MD rt Haydee Lovett RN RN me1 Ruma, Mariama jr12 Jose C Ramirez RN jj7 Corrections: (The following items were deleted from the chart) 11/04 16:52 16:52 Allergies: Codeine; ap3 ap3 18:59 18:59 Constitutional: Negative for fever, chills, and weight loss, kb kb 18:59 18:59 Cardiovascular: Positive for chest pain, kb kb 18:59 18:59 Respiratory: Positive for dyspnea on exertion, kb kb 18:59 18:59 All other systems are negative, kb kb 19:58 19:57 Consideration of Admission/Observation Patient was admitted/placed on kb observation. Escalation of care including admission/observation considered. kb 19:59 18:58 Constitutional: This is a well developed, well nourished patient who is awake, kb alert, and in no acute distress. Head/Face: Normocephalic, atraumatic. ENT: Moist Mucous membranes Cardiovascular: Regular rate Respiratory: Respirations even and unlabored. No increased work of breathing. Talking in full sentences Neuro: Awake and alert, GCS 15, oriented to person, place, time, and situation. Moves all extremities. Normal gait. kb 20:51 19:05 kb jr12
[2023-11-04] MEDS ORDERED: NA CHLORIDE 0.9% 1,000 ML ONE (19:26)
[2023-11-04] MEDS ORDERED: ONDANSETRON 4 MG/2 ML VIAL IV PRN (20:38)
[2023-11-04] MEDS ORDERED: ACETAMINOPHEN 325 MG TABLET PO PRN (20:38)
--- NOTE | 2023-11-04 20:46 | P.HP ---
Certification for Inpatient Patient admitted to: Observation With expected LOS: <2 Midnights Practitioner: I am a practitioner with admitting privileges, knowledge of patient current condition, hospital course, and medical plan of care. Services: Services provided to patient in accordance with Admission requirements found in Title 42 Section 412.3 of the Code of Federal Regulations Patient History Date of Service: 11/05/23 Reason for admission: Leg swelling and wound infection. History of Present Illness: 63-year-old female patient past medical history significant for diabetes type 2, hypertension, hyperlipidemia, depression and obesity was evaluated for episode of worsening infection in the legs. She has bilateral leg rash and ulcers which is being followed up by surgeon Dr. Palm. She had worsening infection and there was concern for sepsis so she was admitted for inpatient care for debridement by surgeon. She denied overt episode of fever, chills, rigor, moustapha sea, vomiting. Labs showed elevated creatinine and white cell. Allergies No Known Allergies Allergy (Verified 11/05/23 00:12) Home Medications: Amitriptyline [Elavil*] 25 mg PO BEDTIME 12/29/20 Amlodipine [Norvasc*] 5 mg PO DAILY 12/29/20 Duloxetine HCl [Cymbalta] 30 mg PO DAILY 12/29/20 Duloxetine HCl [Cymbalta] 60 mg PO DAILY 12/29/20 Gabapentin [Neurontin*] 400 mg PO Q8H 12/29/20 Glipizide [Glipizide ER] 5 mg PO DAILY 12/29/20 Losartan/Hydrochlorothiazide [Hyzaar 100-25 Tablet] 25 mg PO DAILY 12/29/20 Rosuvastatin Calcium 10 mg PO DAILY 12/29/20 Tizanidine [Zanaflex*] 4 mg PO BID 12/29/20 Tramadol HCl [Ultram] 50 mg PO Q8H 12/29/20 Amox/Clavulanate [Augmentin 875-125 Tab] 875 mg PO BID #10 tab 12/30/20 Doxycycline Hyclate [Vibramycin] 100 mg PO BID #7 capsule 12/30/20 Furosemide [Lasix] 40 mg PO DAILY PRN #30 tab 12/30/20 - Past Medical/Surgical History Diabetic: Yes -: HTN -: DM -: HLD -: depression -: sleep apnea -: tubal ligation - Family History Mother -: Cancer, Other (see notes) Notes: lung and liver - Social History Alcohol use: No CD- Drugs: No Caffeine use: Yes Review of Systems General: Unremarkable Eyes: Unremarkable ENT: Unremarkable Respiratory: Unremarkable Cardiovascular: Unremarkable Gastrointestinal: Unremarkable Genitourinary: Unremarkable Musculoskeletal: As per HPI Integumentary: As per HPI Neurological: Unremarkable Lymphatics: Unremarkable Physical Examination - Physical Exam General: Alert, Oriented x3 HEENT: Atraumatic Neck: Supple Respiratory: Normal air movement Cardiovascular: Regular rate/rhythm, Normal S1 S2 Gastrointestinal: Soft and benign Musculoskeletal: No swelling Integumentary: Skin breakdown, Skin lesion Neurological: Normal speech, Normal strength at 5/5 x4 extr - Studies Laboratory Data (last 24 hrs) 11/04/23 11/04/23 11/04/23 17:41 17:41 17:41 WBC 11.30 H Hgb 13.8 Hct 41.6 Plt Count 360 PT 11.9 INR 1.08 APTT 33.5 Sodium 138 Potassium 3.7 BUN 18 Creatinine 1.07 H Glucose 187 H Total Bilirubin 0.3 AST 15 ALT 28 Alkaline Phosphatase 94 Assessment and Plan - Plan Cellulitis of the lower extremity: Surgeon has evaluated patient and she is in need of debridement. Continue empiric antibiotic therapy with vancomycin and cefepime. Cultures taken. Continue wound care. Continue pain control with Tylenol and as needed Charlotte Hypertension: Will continue outpatient prescribe antihypertensive medication and monitor vitals per unit protocol Diabetes type 2: We will continue sliding scale insulin for glucose control and carb restricted diet. Hyperlipidemia: We will continue statin therapy Prophylaxis: Lovenox for DVT prophylaxis. CODE STATUS: Full code. Disposition: We will treat leg wounds and she will discharge once she is cleared by surgical service. - Advance Directives Does patient have a Living Will: No Does patient have a Durable POA for Healthcare: No
[2023-11-04] MEDS: INSULIN REGULAR (HUMAN) 100 UNIT/ML SQ SCH (21:00)
[2023-11-04] MEDS ORDERED: VANCOMYCIN 500 MG in NA CHLORIDE 0.9% 100 ML IVPB ONE (21:30)
[2023-11-04] MEDS: CEFEPIME 1 GM in NA CHLORIDE 0.9% 100 ML IV SCH (22:34)
[2023-11-04] MEDS: NA CHLORIDE 0.9% 1,000 ML IV SCH (22:35)
[2023-11-05 00:19] VITALS: BMI 51.2
[2023-11-05 05:11] LABS: Absolute Lymphocytes (CBC) 2.2 K/uL (0.7-4.9); Hematocrit 36.2 % (36.0-45.0); Lymphocytes % 28.6 % (15.3-44.8); MPV 7.6 fL (7.6-11.3); Platelets 278 thou/uL (152-406); RBC Red Blood Cell Count 3.89 M/uL (3.86-4.86)
[2023-11-05 05:26] LABS: Potassium 3.8 mEq/L (3.5-5.1)
[2023-11-05] MEDS: NA CHLORIDE 0.9% 1,000 ML IV SCH ×2 (07:00→18:03)
[2023-11-05] MEDS: INSULIN REGULAR (HUMAN) 100 UNIT/ML SQ SCH ×4 (07:30→21:00)
[2023-11-05] MEDS: ENOXAPARIN 40 MG/0.4 ML SQ SCH (10:21)
[2023-11-05] MEDS: CEFEPIME 1 GM in NA CHLORIDE 0.9% 100 ML IV SCH ×2 (10:21→21:23)
[2023-11-05] MEDS: MORPHINE 4 MG/ML SYR IV PRN ×3 (12:29→22:51)
--- NOTE | 2023-11-05 14:14 | P.CNS ---
Date of Consult: 11/05/23 Reason for Consult: BLE infected ulcers Chief Complaint: Leg swelling and wound infection. History of Present Illness: "63-year-old female patient past medical history significant for diabetes type 2, hypertension, hyperlipidemia, depression and obesity was evaluated for episode of worsening infection in the legs. She has bilateral leg rash and ulcers which is being followed up by surgeon Dr. Palm. She had worsening infection and there was concern for sepsis so she was admitted for inpatient care for debridement by surgeon" Patient was started on empiric antibiotics. Infectious disease was consulted. Allergies No Known Allergies Allergy (Verified 11/05/23 00:12) Home Medications: Amitriptyline [Elavil*] 25 mg PO BEDTIME 12/29/20 Amlodipine [Norvasc*] 5 mg PO DAILY 12/29/20 Duloxetine HCl [Cymbalta] 30 mg PO DAILY 12/29/20 Duloxetine HCl [Cymbalta] 60 mg PO DAILY 12/29/20 Gabapentin [Neurontin*] 400 mg PO Q8H 12/29/20 Glipizide [Glipizide ER] 5 mg PO DAILY 12/29/20 Losartan/Hydrochlorothiazide [Hyzaar 100-25 Tablet] 25 mg PO DAILY 12/29/20 Rosuvastatin Calcium 10 mg PO DAILY 12/29/20 Tizanidine [Zanaflex*] 4 mg PO BID 12/29/20 Tramadol HCl [Ultram] 50 mg PO Q8H 12/29/20 Amox/Clavulanate [Augmentin 875-125 Tab] 875 mg PO BID #10 tab 12/30/20 Doxycycline Hyclate [Vibramycin] 100 mg PO BID #7 capsule 12/30/20 Furosemide [Lasix] 40 mg PO DAILY PRN #30 tab 12/30/20 - Past Medical/Surgical History Diabetic: Yes -: HTN -: DM -: HLD -: depression -: sleep apnea -: tubal ligation - Family History Mother Medical History: Cancer, Other (see notes) Notes: lung and liver - Social History Smoking Status: Unknown if ever smoked Alcohol use: No CD- Drugs: No Caffeine use: Yes Place of Residence: Home Review of Systems 10-point ROS is otherwise unremarkable Musculoskeletal: Leg Pain (bilateral) Integumentary: As per HPI Physical Examination Temp Pulse Resp BP Pulse Ox 97.4 F 89 16 168/77 H 97 11/05/23 12:00 11/05/23 12:00 11/05/23 12:00 11/05/23 12:00 11/05/23 12:00 General: Alert, In no apparent distress, Oriented x3, Obese HEENT: Atraumatic, Normocephalic Neck: Supple Respiratory: Clear to auscultation bilaterally, Normal air movement Cardiovascular: Regular rate/rhythm, Edema (BLE 1+) Gastrointestinal: Normal bowel sounds, No tenderness Integumentary: Tenderness/swelling (BLE), Venous stasis ulcer (Bilateral lower extremities) Laboratory Data - Reviewed Microbiology Data - Reviewed Imagings Data: - Reviewed Conclusions/Impression: Problem List Venous stasis ulcers with suspected infection Diabetes Mellitus type II Hypertension Hyperlipidemia Obesity Onychomycosis Venous Stasis Ulcers with suspected infection - Pending debridement - Currently on Cefepime and Vancomycin (started 11/04-) - afebrile - leukocytosis resolved Recommendations - Continue Cefepime and Vancomycin for now. - Pending debridement - Keep legs elevated to help reduce swelling - Strict blood glucose control - Monitor WBC and fever trends Case discussed with Austin Johnson
--- NOTE | 2023-11-05 14:16 | RAD REPORT ---
EXAM DESCRIPTION: US - Extrem Venous W Compress Patricio - 11/05/2023 2:04 pm CLINICAL HISTORY: venous stasis disease, leg swellin Bilateral leg edema and swelling. COMPARISON: <Comparisons> TECHNIQUE: Real-time sonographic interrogation of the left and right lower extremity deep venous sys tems was performed. FINDINGS: Normal compressibility, flow augmentation, phasic flow and spontaneous flow is identified in both the left and right lower extremity deep venous systems. IMPRESSION: No sonographic evidence of left or right lower extremity deep venous thrombosis.
--- NOTE | 2023-11-05 15:06 | CON ---
Date of Consultation: 11/05/2023 Reason For Service: Infected venous stasis ulcer, bilateral lower extremities. Indication: This is the case of a 63-year-old patient, seen at [facility] yesterday referred to [facility] ER for admission and treatment of cellulitis of bilateral lowe r extremities. At the same time, since she is here, we would like to also do a debridement of her in fected venous stasis ulcer. Past Medical History: Includes diabetes, high blood pressure, hyperlipidemia, depression. Allergies: NONE. Medications: Reviewed including Neurontin, glipizide, Cymbalta, Elavil, Norvasc, furosemide. Family History: Lung cancer. Social History: She does not smoke. She does not drink alcohol. Review of Systems: Bilateral lower extremities tenderness. No calf tenderness, but cellulitis, increased temperature an d swelling. Physical Examination: General: The patient is awake, alert. HEENT: Pupils are equal and reactive. Anicteric. Neck: Supple. Chest: Clear. Heart: S1, S2. Abdomen: Soft and depressible. Extremities: Bilateral lower extremities show erythema, increased temperature from just below the kn ee to the foot region. There are ulcers present in bilateral lower extremities with fibrin present, needs debridement, but it is too painful for her to allow this to be done at bedside. Laboratory Data: Blood work shows a WBC count of 11.3 with hemoglobin of 13.8. INR is 1.08. Chlori de is 109, creatinine is 0.73. Assessment: 63-year-old patient comes to us with bilateral lower extremities swelling, erythema, kamar lulitis, venous stasis ulcers with infection. She does not allow that to be done at bedside, it is t daquan, she ate, so we going to keep her n.p.o. after midnight so we can take the surgery and try to c lean those under anesthesia. The benefits, alternatives, and risks fully explained to the patient wh ich include, but not limited to, infection, bleeding, damage to adjacent structures, anesthesia compl ication, nonhealing wound, KS, even . She also understands she has to follow up with her vascul ar doctors, have to be careful with swelling on her legs and diet too. Diabetes should be also be un agustina control. HM/MODL Voice ID: [id number] Report ID: [id number]
[2023-11-05] MEDS: TRAMADOL HCL 50 MG TAB PO PRN (15:36)
[2023-11-05] MEDS: ACETAMINOPHEN 325 MG TABLET PO PRN (15:37)
[2023-11-05] MEDS ORDERED: VANCOMYCIN 1.75 GM in NA CHLORIDE 0.9% 500 ML IVPB SCH (18:00)
--- NOTE | 2023-11-05 18:44 | P.PN ---
Subjective Date of Service: 11/05/23 Chief Complaint: Leg swelling and wound infection. Subjective: No new changes Patient reports pain in lower extremities. Denies any other signs and symptoms. Review of Systems General: Other Eyes: Unremarkable ENT: Unremarkable Respiratory: Unremarkable Cardiovascular: Unremarkable Gastrointestinal: Unremarkable Genitourinary: Unremarkable Musculoskeletal: Leg Pain Integumentary: Other (BLE ulcers ) Neurological: Unremarkable Lymphatics: Unremarkable Physical Examination - Vital Signs Temperature: 97.6 F Blood Pressure: 166/86 Pulse: 88 Respirations: 16 Pulse Ox (%): 99 - Physical Exam General: Alert, In no apparent distress, Oriented x3, Cooperative HEENT: Atraumatic, PERRLA, EOMI Neck: Supple, JVD not distended Respiratory: Clear to auscultation bilaterally, Normal air movement Cardiovascular: Regular rate/rhythm, Normal S1 S2, Edema Capillary refill: <2 Seconds Gastrointestinal: Normal bowel sounds, Soft and benign, No tenderness Musculoskeletal: No contractures, No tenderness Integumentary: No rashes, Skin breakdown, Other (BLE ulcers ) Neurological: Normal speech, Normal tone, Normal affect Lymphatics: No axilla or inguinal lymphadenopathy Assessment And Plan - Plan Interval history. 11/05/2023. Patient seen at bedside. Patient is scheduled for an I&D of bilateral lower extremity infected ulcers in AM. Surgeon on board. Infectious disease MD consulted for antibiotics management.. MRI bilateral lower extremities pending to rule out osteomyelitis. Continue antibiotics. Pain controlled with current pain medication regimen. Continue supportive care. Further management per consultants. Assessmen and Plan Cellulitis of the lower extremity: Surgeon has evaluated patient and she is in need of debridement. Continue empiric antibiotic therapy with vancomycin and cefepime. Cultures taken. Continue wound care. Continue pain control with Tylenol and as needed [place] Hypertension: Will continue outpatient prescribe antihypertensive medication and monitor vitals per unit protocol Diabetes type 2: We will continue sliding scale insulin for glucose control and carb restricted diet. Hyperlipidemia: We will continue statin therapy Prophylaxis: Lovenox for DVT prophylaxis. Discharge Plan: Home Plan to discharge in: Greater than 2 days - Code Status/Comfort Care Code Status Assessed: Yes Physician Review: Patient Assessed, Agree with Above Assessment and Plan Critical Care: No
[2023-11-06] MEDS: NA CHLORIDE 0.9% 1,000 ML IV SCH ×2 (03:00→13:00)
[2023-11-06 06:01] LABS: Absolute Lymphocytes (CBC) 1.6 K/uL (0.7-4.9); Hematocrit 36.2 % (36.0-45.0); Lymphocytes % 25.3 % (15.3-44.8); MCV 93.5 fL (80-100); MPV 7.3 fL (7.6-11.3); Platelets 263 thou/uL (152-406); RBC Red Blood Cell Count 3.86 M/uL (3.86-4.86)
[2023-11-06 06:10] LABS: Potassium 3.7 mEq/L (3.5-5.1)
[2023-11-06] MEDS: INSULIN REGULAR (HUMAN) 100 UNIT/ML SQ SCH ×3 (07:30→17:15)
[2023-11-06] MEDS ORDERED: LIDOCAINE 1% MPF 5 ML VIAL ONE (08:52)
[2023-11-06] MEDS ORDERED: propofoL 200 MG/20 ML VIAL IV ONE (08:52)
[2023-11-06] MEDS ORDERED: MIDAZOLAM HCL 2 MG/2 ML INJ ONE (08:53)
[2023-11-06] MEDS ORDERED: FENTANYL CITR 100 MCG/2 ML ONE (08:53)
[2023-11-06] MEDS: CEFEPIME 1 GM in NA CHLORIDE 0.9% 100 ML IV SCH (08:55)
[2023-11-06] MEDS: ENOXAPARIN 40 MG/0.4 ML SQ SCH (09:00)
[2023-11-06] MEDS ORDERED: VANCOMYCIN 1.5 GM in NA CHLORIDE 0.9% 500 ML IVPB SCH (09:00)
[2023-11-06] MEDS ORDERED: ONDANSETRON 4 MG/2 ML VIAL ONE (09:07)
[2023-11-06] MEDS ORDERED: dexAMETHasone 4 MG/ML VIAL ONE (09:07)
[2023-11-06] MEDS ORDERED: KETOROLAC 30 MG/ML INJ ONE (09:08)
[2023-11-06] MEDS ORDERED: BACITRACIN OINTMENT 14 GM TUBE TOP ONE (09:25)
--- NOTE | 2023-11-06 09:45 | P.PN ---
Subjective Date of Service: 11/06/23 Chief Complaint: Leg swelling and wound infection. Subjective: No new changes, Improving, Doing well Patient is alert and oriented x 3 Resting in the bed NAD Denies any pain or shortness of breath Vital stable <Juan Luis Arango - Last Filed: 11/06/23 09:40> Date of Service: 11/08/23 <Jessika Díaz - Last Filed: 11/08/23 17:11> Review of Systems 10-point ROS is otherwise unremarkable <Juan Luis Arango - Last Filed: 11/06/23 09:40> Physical Examination - Vital Signs Temperature: 97.7 F Blood Pressure: 132/65 Pulse: 90 Respirations: 18 Pulse Ox (%): 96 - Physical Exam General: Alert, Oriented x3 HEENT: Atraumatic, Normocephalic Neck: Supple, 2+ carotid pulse no bruit, JVD not distended Respiratory: Clear to auscultation bilaterally, Normal air movement Cardiovascular: No edema, Normal pulses Capillary refill: <2 Seconds Gastrointestinal: Normal bowel sounds, Soft and benign Musculoskeletal: No clubbing, Swelling (lower extreities), Erythema (lower extremities erythema, edema) Integumentary: Other (lower extremities erythema, edema) Neurological: Normal speech, Normal tone, Normal affect <Juan Luis Arango - Last Filed: 11/06/23 09:40> Assessment And Plan - Current Problems (Diagnosis) (1) HLD (hyperlipidemia) Status: Chronic Qualifiers: Hyperlipidemia type: other hyperlipidemia Qualified Code(s): E78.49 - Other hyperlipidemia; E78.4 - Other hyperlipidemia (2) Cellulitis of lower extremity Status: Chronic Qualifiers: Laterality: left Qualified Code(s): L03.116 - Cellulitis of left lower limb (3) Diabetes mellitus type 2 in obese Status: Acute (4) Hypertension Status: Chronic Qualifiers: Hypertension type: primary hypertension Qualified Code(s): I10 - Essential (primary) hypertension - Plan Cellulitis of the lower extremity: Surgeon has evaluated patient and she is in need of debridement. Continue empiric antibiotic therapy with vancomycin and cefepime. Cultures taken. Continue wound care. Continue pain control with Tylenol and as needed [place] Hypertension: Will continue outpatient prescribe antihypertensive medication and monitor vitals per unit protocol Diabetes type 2: We will continue sliding scale insulin for glucose control and carb restricted diet. Hyperlipidemia: We will continue statin therapy Prophylaxis: Lovenox for DVT prophylaxis. Discharge Plan: Home Plan to discharge in: 48 Hours - Code Status/Comfort Care Code Status Assessed: Yes (full code) Code Status: Full Code Physician Review: Patient Assessed, Agree with Above Assessment and Plan Critical Care: No Time Spent Managing PTS Care (In Minutes): 35 (minutes) <Juan Luis Aranog - Last Filed: 11/06/23 09:40> - Plan Pt seen and examined. I agree with the note by the [employer]ING [employer] DRIVER. Gen surgeon will do wound debridement <Jessika Díaz - Last Filed: 11/08/23 17:11>
--- NOTE | 2023-11-06 09:52 | P.BOP ---
Preoperative diagnosis: bilateral legs venous stasis infected ulcers Postoperative diagnosis: same Primary procedure: Excisional subQ debridement infected ulcers: 1. Right post leg 7x6cm Secondary procedure: 2. Left posterior leg 12x8cm, 3. left lateral proximal leg 2x2cm Estimated blood loss: <20cc Specimen: culture Findings: see above Anesthesia: General Complications: None Drain(s): Other Transferred to: Recovery Room Condition: Good
--- NOTE | 2023-11-06 10:17 | OP ---
Date of Procedure: 11/06/2023 Surgeon: Xavi Palm MD Preoperative Diagnosis: Infected necrotic bilateral lower extremity venous stasis ulcers. Postoperative Diagnosis: Infected necrotic bilateral lower extremity venous stasis ulcers. Procedure: Excision and subcutaneous debridement of infected ulcer. 1.Right posterior leg, 7 x 6 cm. 2.Left posterior leg, 12 x 8 cm. 3.Left lateral proximal leg, 2 x 2 cm. Estimated Blood Loss: Less than 20 cc. Specimen: Culture. Findings: Necrotic ulcers. Anesthesia: General plus local. Complications: None. Indication: This is a case of a 63-year-old patient with multiple medical problems, who comes to us with necrotic ulcers, unable to be cleaned at bedside due to tenderness and cellulitis associated wit h both lower extremities. After explained to her wound care and also weight loss and follow with the primary doctor and then we also explained to her the need for subcutaneous debridement with benefits , alternatives, and risks include, but not limited to infection, bleeding, damage to adjacent structu res, anesthesia complication, nonhealing wound, NM, and even . She also understands this may no t relieve the symptoms. She might need more than one surgical intervention. She understood and sign ed a consent. She is having too much pain. We are going to have to do this under anesthesia. The p atient was brought to the operating room and placed in supine position. Anesthesia was done without complication. Bilateral legs were prepped and draped circumferentially in the usual sterile fashion. After time-out, we proceeded to do subcutaneous debridement of those 3 areas, right posterior leg, left posterior leg, and also left lateral proximal leg. Using the same technique, which consisted of local anesthetic, we proceeded to use a curette and a blade and proceeded to do subcutaneous debride ment of those areas until we removed all the tissue. The patient tolerated the procedure well. Hemo stasis was obtained with Bovie cauterizer and then the area was cleaned and covered with Bactroban an d gauze. The patient tolerated the procedure well. The patient went to recovery in stable condition . ARGELIA/CHRISTIANO Voice ID: [id number] Report ID: [id number]
[2023-11-06 10:21] VITALS: O2SAT 100
[2023-11-06] MEDS ORDERED: MUPIROCIN 2% OINT 22GM TUBE TOP SCH (11:00)
[2023-11-06 12:01] VITALS: TEMP 97
--- NOTE | 2023-11-06 14:18 | P.PN ---
Date of Service: 11/06/23 Chief Complaint: Leg swelling and wound infection. Subjective: s/p debridement this morning. Tolerated procedure well. In no apparent distress. Physical Examination Temp Pulse Resp BP Pulse Ox 97.0 F 82 16 149/67 H 95 11/06/23 11:53 11/06/23 11:53 11/06/23 11:53 11/06/23 11:53 11/06/23 11:53 General: Alert, In no apparent distress, Oriented x3, Obese HEENT: Atraumatic, Normocephalic Neck: Supple Respiratory: Clear to auscultation bilaterally, Normal air movement Cardiovascular: Regular rate/rhythm, Edema (BLE 1+) Gastrointestinal: Normal bowel sounds, No tenderness Integumentary: Tenderness/swelling BLE. Dressings clean dry and intact. Laboratory Data - Reviewed Microbiology Data - Reviewed Imagings Data: - Reviewed Medication List: Reviewed Assessment and Plan Problem List Venous stasis ulcers with suspected infection Diabetes Mellitus type II Hypertension Hyperlipidemia Obesity Onychomycosis Venous Stasis Ulcers with suspected infection - s/p debridement 11/[address] Palm. - Wound cultures 11/06: pending - Currently on Cefepime and Vancomycin (started 11/04-) - afebrile - leukocytosis resolved Recommendations - s/p debridement of bilateral lower extremity venous stasis/pressure ulcers. Follow up with culture results. Depending on sensivities, consider switch to Augmentin PO upon discharge to complete a total of 14 days antibiotic therapy (11/04-11/18). - Keep legs elevated to help reduce swelling - Wound care per Dr Palm - Strict blood glucose control - Monitor WBC and fever trends - Follow up at wound care clinic as outpatient Case discussed with Austin Johnson
[2023-11-06 16:16] VITALS: BP 148/74
[2023-11-06] MEDS: ACETAMINOPHEN 325 MG TABLET PO PRN (17:15)
[2023-11-06] MEDS: TRAMADOL HCL 50 MG TAB PO PRN (17:19)
--- NOTE | 2023-11-10 17:17 | EKG ---
Test Date: 2023-11-04 Test Time: 17:45:41 Event Av Operator: SANDRO MEASUREMENT RESULTS: Intervals: Rate: 97 MN: 142 QRSD: 106 QT: 382 QTc: 485 [place]: P: 75 MN: 142 QRS: -58 T: 73 INTERPRETIVE STATEMENTS: Normal sinus rhythm Left anterior fascicular block Cannot rule out Inferior infarct (masked by fascicular block?), age undetermined Anterolateral infarct, age undetermined Abnormal ECG Compared to ECG 04/27/2022 09:55:21 Left anterior fascicular block now present Myocardial infarct finding now present Electronically Signed On 11-10-23 16:58:59 [employer] by Osvaldo Gonzalez
== END 2023-11-06 18:37 | disposition home or self-care (01) | DRG 854 ==
LOC: ER 16:41 → 2ND 20:38
PROVIDERS: ADMIT Internal Medicine Nephrology; ATTEND Hospitalist
PROC: 0JBM0ZZ Excision of Left Upper Leg Subcutaneous Tissue and Fascia, Open Approach (ICD-10-PCS; 2023-11-06)
PROC: 0JBN0ZZ Excision of Right Lower Leg Subcutaneous Tissue and Fascia, Open Approach (ICD-10-PCS; 2023-11-06)
PROC: 0JBP0ZZ Excision of Left Lower Leg Subcutaneous Tissue and Fascia, Open Approach (ICD-10-PCS; principal; 2023-11-06 09:00)
DX: A41.9 Sepsis, unspecified organism (principal); E87.20 Acidosis, unspecified; L03.115 Cellulitis of right lower limb; L03.116 Cellulitis of left lower limb; L97.819 Non-pressure chronic ulcer of other part of right lower leg with unspecified severity; L97.829 Non-pressure chronic ulcer of other part of left lower leg with unspecified severity; Z68.43 Body mass index [BMI] 50.0-59.9, adult; R65.20 Severe sepsis without septic shock; E11.51 Type 2 diabetes mellitus with diabetic peripheral angiopathy without gangrene; I83.028 Varicose veins of left lower extremity with ulcer other part of lower leg; I83.018 Varicose veins of right lower extremity with ulcer other part of lower leg; E66.9 Obesity, unspecified; I10 Essential (primary) hypertension; I87.8 Other specified disorders of veins; E78.00 Pure hypercholesterolemia, unspecified; B35.1 Tinea unguium; Z98.51 Tubal ligation status; Z79.84 Long term (current) use of oral hypoglycemic drugs; Z79.899 Other long term (current) drug therapy
CPT/HCPCS: 36415; 80048; 80053; 82947; 83605; 85025; 85610; 85730; 87040; 87070; 87075; 87077; 87186; 87205; 93005; 93970; 96365; 96375; 99285; J0692; J1100; J1650; J1815; J2001; J2250; J2405; J2543; J2704; J3010; J7030; J7040; J7050